=== PATIENT | female | born 1970 | race Caucasian/White ===

== ENCOUNTER → 2017-11-30 10:00 | Outpatient (CLI) | payer BC, SELFPAY | PROVIDERS: Family Provider Family Medicine; PCP Family Medicine; Visit Provider Otolaryngology | DX: Z53.9 Procedure and treatment not carried out, unspecified reason (principal) ==

== ENCOUNTER 2018-08-23 06:41 | Day surgery (SDC) | payer BC, SELFPAY ==
[2018-08-23 07:31] VITALS: BP 114/62; PULSE 73; RESP 18; TEMP 36.6; O2SAT 98; BMI 51.5
--- NOTE | 2018-08-23 08:28 | DCINST_ITS ---
You will use the following diet at home:: No restrictions Discharge Activity: Return to Normal Activity Allergies/Adverse Reactions: Allergies No Known Allergies Allergy (Verified 11/02/17 11:47) Medications to take at Discharge Fluticasone 0.05% [Flonase Nasal [place]] 1 spray NASAL DAILY 12/07/14 Sertraline HCl [Zoloft] 100 mg PO DAILY 12/07/14 Albuterol Inhaler [Ventolin Hfa (SP)] 2 puff INHALATION Q6H PRN PRN 01/16/15 Multivitamins,Therapeutic [Multivitamin] 1 tablet PO DAILY 01/16/15 Montelukast [Singulair] 10 mg PO DAILY 11/02/17 Rabeprazole Sodium [Aciphex] 20 mg PO DAILY 11/02/17 Cetirizine HCl [Zyrtec] 10 mg PO DAILY 08/18/18 Primary Care Physician: Ethan Ba [Primary Care Provider] - Test Results: Test results from this visit will be discussed in further detail at your follow- up appointment, if applicable. Please Follow Up With: Nigel Horn MD When: 3 weeks
--- NOTE | 2018-08-23 08:29 | PCM.OPRPT ---
Problem List (1) Chronic serous otitis media of right ear Status: Chronic (2) Eustachian tube dysfunction Status: Chronic Qualifiers: Laterality: right Qualified Code(s): H69.81 - Other specified disorders of Eustachian tube, right ear Report of Operation Date of Procedure: 08/23/18 Pre-Operative Diagnosis: 1. chronic serous otitis, right ear. 2. eustachain tube dysfunction, right ear Post-Operative Diagnosis: 1. chronic serous otitis, right ear. 2. eustachain tube dysfunction, right ear Surgery/Procedure Performed:: 1. placement pressure equalization tube, right ear. 2. eustachian tube dilation, right ear Type of Anesthesia:: General Description of Procedure: on the day of the procedure, after appropriate informed consent was obtained, the patient was brought to the operating room and placed in supine position on the operating table. he was placed under general endotracheal anesthesia by the anesthesiologist. the tube was secured, the eyes were taped. the left ear was examined by the binocular operating microscope. a speculum was placed. the tympanic membrane was viewed in its entirety and found to be intact. the tympanic membrane was adherent to the promontory. a large mucoid effusion was suctioned and T-tube was placed. the nose was decongested with oxymetazoline soaked pledgets. a zero degree endoscope was inserted into the left nasal cavity and the eustachian tube orifice was visualized. the acclarent AERA system was advanced gently into the eustachian tube with no resistance until a soft stop was felt. it was inflated to 12 david for 2 minutes. the balloon was deflated and retracted. there was no false passage. the patient was awoken from anesthesia and transferred to the PACU in stable condition.
[2018-08-23] MEDS: Ciprofloxacin 0.3% 2.5ml Bottle 1 DRP (09:00)
[2018-08-23] MEDS: Oxymetazoline 0.05% 1 SPRAY SPRAY.BTL 15 SPRAY (09:00)
[2018-08-23 09:09] VITALS: BP 114/62; BP 118/63; PULSE 91; RESP 16; TEMP 37; O2SAT 100
[2018-08-23 09:15] VITALS: BP 107/67; BP 114/62; PULSE 84; RESP 16; O2SAT 100
[2018-08-23 09:30] VITALS: BP 114/62; BP 98/71; PULSE 90; RESP 16; O2SAT 100
[2018-08-23 09:37] VITALS: BP 114/62; BP 91/68; PULSE 79; RESP 16; TEMP 36.7; O2SAT 96
[2018-08-23 10:14] VITALS: BP 114/62; BP 94/68; PULSE 80; RESP 16; TEMP 36.9; O2SAT 98
== END 2018-08-23 10:20 | disposition home or self-care (01) ==
LOC: SDC 06:42 → AC 06:44
PROVIDERS: Family Provider Family Medicine; PCP Family Medicine; Referring Provider Otolaryngology; Visit Provider Otolaryngology
PROC: (CPT 69799; principal; 2018-08-23 08:35)
DX: H65.21 Chronic serous otitis media, right ear (principal); H69.81 Other specified disorders of Eustachian tube, right ear; F32.9 Major depressive disorder, single episode, unspecified; Z79.899 Other long term (current) drug therapy; J45.909 Unspecified asthma, uncomplicated; G47.30 Sleep apnea, unspecified; K21.9 Gastro-esophageal reflux disease without esophagitis; Z87.891 Personal history of nicotine dependence
CPT/HCPCS: 00126; 69436; J7120; J2405

== ENCOUNTER 2020-07-19 05:48 | Day surgery (SDC) | payer BC, MEDICAID, SELFPAY ==
--- NOTE | 2020-07-17 19:59 | PCM.HP.BLA ---
History and Physical History and Physical Patient Name: Miguelina Glasgow : 1970 From: GEMMA BEE NP DATE OF SURGERY: 07/19/2020 SCHEDULED PROCEDURE: Left middle finger trigger release HISTORY OF PRESENT ILLNESS: Preoperative history and physical exam was performed on July 17, 2020. This is a 49-year-old female who has been experiencing left middle finger triggering for several months. The patient rates her pain as 2 on a scale of 10 on average and 8 on a scale of 10 at worst. The patient does wake in the morning with the need to use the right hand to unlock the left middle finger. The pain is made worse with bending the left middle finger. Previous conservative measures consisting of rest and a splint. The patient has a medical history pertinent for asthma, depression, sleep apnea, gastroesophageal reflux disease and history of a DVT. The patient had a DVT in the right lower extremity in January 2019. She denies chest pain, fevers, chills, shortness of breath, difficulty breathing or recent infections. After failing conservative measures and discussing treatment options with Dr. Michael Fregoso the patient does wish to proceed with a left middle finger trigger release. REVIEW OF SYSTEMS: ROS: Const: Reports weight change, but denies change in appetite and fever. CV: Denies chest pain, heart murmur and irregular heartbeat. Resp: Reports shortness of breath and wheezing, but denies cough, pneumonia and tuberculosis. GI: Denies constipation, diarrhea, heartburn, nausea, rectal itching, bloody stools and vomiting. : Reports incontinence. Musculo: Reports leg swelling, pain, trouble walking and weakness. Skin: Reports tattoo, but denies Raynaud's and history of shingles. Neuro: Reports difficulty with balance, dizziness and numbness/tingling but denies ambulatory dysfunction and tremor. Psych: Reports anxiety and stress, but denies insomnia. Jay/Lymph: Reports bleeding/bruising tendency, but denies anemia and past transfusion. Reviewed and updated. PAST MEDICAL HISTORY: Advance Care Plan: Other Directive, POA Other Directive, LIVING WILL PMH: Medical Problems: Arthritis, Asthma, Depression, History Of Phlebitis, Sleep Apnea, Gastroesophageal reflux disease Accidents: LT Ankle Injury, RT Index Finger Injury Surgical Hx: Section Thyroid Nodule Removed - HALF EX Lap Abdomen, Widening of eustachian tube Anesthesia Complications: Nausea, Hard To Wake Up Assistive Devices: Glasses Reviewed and updated. 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 Personal Habits: Cigarette Use: Former.Smokeless Tobacco: Never Used Smokeless Tobacco.E-Cigarette Use: Never used.Alcohol: Occasionally.Drug Use: Denies Use.Enjoy Exercising: Exercises 1-3 x/month. Reviewed and updated. VITALS: Ht: 63 Wt: 293lb 5oz Wt k.047 BMI: 52.0 BP: 140/84 Pulse: 80 Resp: 16 T: 97.9 T: 36.6C ALLERGIES: No Known Drug Allergy MEDICATIONS: Meloxicam 15 mg 1 by mouth every day, Montelukast Sodium 10 mg 1 by mouth every day, Sertraline HCL 100 mg 1po qday, Vitamins daily, Rabeprazole Sodium 20 mg 1po qday PRE-OP EXAM: General appearance:NORMAL Other: Eyes: Conjunctivae and lids: NORMAL Pupils: ERR Ears, Nose, Mouth, and Throat: NORMAL Other: Inspection of lips, teeth and gums: NORMAL Other: Respiratory: Assessment of respiratory effort: NORMAL Other: Auscultation of lungs: clear to auscultation no wheezes, rhonchi or rales. Cardiovascular: Auscultation of heart: regular rate and rhythm, no murmurs, gallops or rubs. Gastrointestinal: Exam of abdomen: soft, nontender, nondistended bowel sounds present. Neurological: see below Psychiatric: Orientation to time, place and person: NORMAL Other: Mood and affect: NORMAL Other: PHYSICAL EXAMINATION: Left hand with tenderness over the A1 gurpreet of the left middle finger. Triggering with flexion and extension of the fingers. Patient is able to make a full composite fist with full extension of all digits. Hose Wrapper strength 5/5. Capillary refill less than 3 seconds. Radial pulse palpable. Sensation intact to light touch. IMAGING STUDIES: 3 views of left hand obtained on May 28, 2020 including AP, lateral and oblique reveal no evidence of fractures or dislocations. No significant osteoarthritis visualized. IMPRESSION: 1. Left middle trigger finger 2. Asthma 3. Depression 4. Sleep apnea 5. Gastroesophageal reflux disease 6. History of a DVT in right lower extremity, January 2019 PLAN: Dr. Michael Fregoso did discuss and review with the patient all treatment options including surgical versus nonsurgical. The patient does wish to proceed with the above-stated procedure. Potential risk, benefits and complications of the procedure were discussed in detail including but not limited to , infection, nerve and blood vessel damage, persistent pain, numbness, tingling, paresthesia, blood clot, pulmonary embolism and requirement for possible further surgery. The patient expressed full understanding and has no further questions for the doctor. The patient does agree to proceed with the above-stated procedure and has signed the surgery consent form. Discussed with the patient the risks associated with the COVID-19 virus including the risk of exposure while at the hospital. The patient was reassured local hospitals have low infection rates and taken all necessary precautions to limit patient exposure to COVID-19. Limiting the patient's time in the hospital may decrease their exposure to COVID-19. The patient was notified that we will need to comply with any screening or testing the hospital wishes to perform and that surgery may be delayed for any positive test results. This dictation was created using voice recognition software. Phonetic and/or grammatical errors may exist. ___ I have re-examined the patient. There are no clinical changes since date of exam. ___ See progress notes for changes. ___ Dictated on admission Date: Time: Signature:
--- NOTE | 2020-07-18 13:58 | EKG12_ITS ---
Test Reason : PRE OP Blood Pressure : / mmHG Vent. Rate : 065 BPM Atrial Rate : 065 BPM P-R Int : 164 ms QRS Dur : 070 ms QT Int : 368 ms P-R-T Axes : 041 013 022 degrees QTc Int : 382 ms Normal sinus rhythm Low voltage QRS Borderline ECG Confirmed by BHAVESH FLORES, JANETT ([id number]), editor managing director CATALINO VALENCIA ([id number]) on 07/22/2020 1:19:56 PM Referred By: Michael Fregoso Confirmed By:BRITTNEY OSPINA MD
[2020-07-18 14:58] LABS: Hematocrit 43.1 % (37-47); Mean Corp Hgb Conc 32.5 g/dL (32-36); Mean Corpuscular Hgb 28.4 pg (27.0-32.0); Mean Corpuscular Volume 87.4 fL (81-99); Mean Platelet Vol. 10.3 fl (6.2-12.0); Platelet Count 304 K/mm3 (150-450); RBC Distribution Width CV 13.8 % (11.6-14.6); Red Blood Count 4.93 M/mm3 (4.2-5.4); White Blood Count 6.8 K/mm3 (4.4-11.0)
[2020-07-18 15:09] LABS: Anion Gap 6 (5-15); BUN 13 mg/dL (7-18); BUN/Creat Ratio 15.8 RATIO (10-20); Calcium,Total 8.9 mg/dL (8.5-10.1); Chloride 109 mmol/L (98-107); Creatinine, Serum 0.82 mg/dL (0.55-1.02); EST Glomerular Filtration Rate 79 mL/min (>60); Est Glom Filt Rate - Afr Amer 95 mL/min (>60); Glucose 98 mg/dL (74-106); Potassium 4.1 mmol/L (3.5-5.1); Sodium Level 141 mmol/L (136-145)
[2020-07-19 06:19] LABS: Internal QC Validated? YES +Cl - CLEAR BKGD; Pregnancy, Urine Negative Negative
[2020-07-19 06:31] VITALS: BP 120/79; PULSE 77; RESP 16; TEMP 521.6; TEMP 971; O2SAT 95; BMI 52.9
[2020-07-19] MEDS: Lactated Ringers 1,000 ML 100 ML IV (07:17)
--- NOTE | 2020-07-19 08:06 | PCM.OPRPT ---
Report of Operation Date of Procedure: 07/19/20 Pre-Operative Diagnosis: A1 stenosing tenosynovitis LMF Post-Operative Diagnosis: same Surgery/Procedure Performed:: Release A1 gurpreet LMF Type of Anesthesia:: Mikala Sevilla Anesthesiologist: Connor Eldridge - Admit VTE Documentation VTE Present on Admission: No VTE Mechan Device Prophylaxis: SCD's VTE Pharm Prophylaxis ordered?: No Reason prophylaxis not ordered:: Procedure Not Indicated
[2020-07-19 08:16] VITALS: BP 120/79; BP 124/79; PULSE 72; RESP 16; TEMP 36; O2SAT 94
[2020-07-19 08:21] VITALS: BP 120/79; BP 125/86; PULSE 76; RESP 16; O2SAT 97
[2020-07-19 08:25] VITALS: BP 117/96; BP 120/79; PULSE 68; RESP 16; O2SAT 97
[2020-07-19 08:31] VITALS: BP 120/70; BP 120/79; PULSE 76; RESP 16; TEMP 36; O2SAT 99
[2020-07-19 09:07] VITALS: BP 120/79; BP 129/76; PULSE 72; RESP 16; TEMP 36.6; O2SAT 99
== END 2020-07-19 09:25 | disposition home or self-care (01) ==
LOC: SDC 05:49 → AC 05:49
PROVIDERS: Anesthesiology; PCP Family Medicine; Referring Provider Orthopaedic Surgery; Visit Provider Orthopaedic Surgery
PROC: (CPT 26055; principal; 2020-07-19 07:20)
DX: M65.332 Trigger finger, left middle finger (principal); M65.842 Other synovitis and tenosynovitis, left hand; Z11.59 Encounter for screening for other viral diseases; F32.9 Major depressive disorder, single episode, unspecified; K21.9 Gastro-esophageal reflux disease without esophagitis; M19.90 Unspecified osteoarthritis, unspecified site; G47.30 Sleep apnea, unspecified; J45.909 Unspecified asthma, uncomplicated; Z87.19 Personal history of other diseases of the digestive system; Z86.718 Personal history of other venous thrombosis and embolism; Z79.01 Long term (current) use of anticoagulants; Z79.899 Other long term (current) drug therapy
CPT/HCPCS: 01810; 26055; 36415; 80048; 81025; 85027; 87635; 93005; C9803; J7120; A4216; J2405; U0003

== ENCOUNTER → 2021-04-30 15:50 | Outpatient (CLI) | payer BC, MEDICAID, SELFPAY ==
[2021-04-30 17:48] LABS: Absolute Lymphocyte Count 2.06 X10^3/uL (0.83-4.51); Absolute Neutrophil Count 5.7 X10^3/uL (2.0-7.7); Basophil# 0.02 X10^3/uL; Basophil% 0.2 % (0-1); Eosinophil# 0.11 X10^3/uL; Eosinophils% 1.3 % (0-5); Hematocrit 42.2 % (37-47); Hemoglobin 13.6 g/dL (12.0-15.0); Lymphocyte # 2.06 X10^3/ul (0.83-4.51); Lymphocyte % 24.2 % (19-41); Mean Corp Hgb Conc 32.2 g/dL (32-36); Mean Corpuscular Hgb 27.4 pg (27.0-32.0); Mean Corpuscular Volume 85.1 fL (81-99); Mean Platelet Vol. 10.4 fl (6.2-12.0); Monocyte# 0.58 X10^3/uL; Monocyte% 6.8 % (0-10); NRBC Flagged by Analyzer 0 % (0-5); Platelet Count 276 K/mm3 (150-450); RBC Distribution Width CV 13.7 % (11.6-14.6); RBC Distribution Width SD 42.1 fl (35.1-43.9); Red Blood Count 4.96 M/mm3 (4.2-5.4); White Blood Count 8.5 K/mm3 (4.4-11.0)
[2021-04-30 18:03] LABS: Vitamin D,25 Hydroxy 36.7 ng/mL
[2021-04-30 18:10] LABS: AST(SGOT) 14 U/L (15-37); Alanine Aminotransfer ALT/SGPT 30 U/L (13-56); Albumin, Serum 3.5 g/dL (3.2-5.0); Alkaline Phosphatase 73 U/L (45-117); Anion Gap 7 (5-15); BUN 26 mg/dL (7-18); BUN/Creat Ratio 28.6 RATIO (10-20); Chloride 108 mmol/L (98-107); Cholesterol 200 mg/dL (200); Creatinine, Serum 0.91 mg/dL (0.55-1.02); EST Glomerular Filtration Rate 70 mL/min (>60); Est Glom Filt Rate - Afr Amer 85 mL/min (>60); Globulin 3.5 g/dL (2.2-4.2); Glucose 125 mg/dL (74-106); High Density Lipoprotein 40 mg/dL; Potassium 3.8 mmol/L (3.5-5.1); Sodium Level 141 mmol/L (136-145); T4 Free Direct 0.75 ng/dL (0.76-1.46); Triglycerides 165 mg/dL; Very Low Density Lipoprotein 33 mg/dL (5-40)
[2021-05-01 18:53] LABS: Hemoglobin A1c 5.3 % (3.8-5.6)
[2021-05-02 09:02] LABS: Thyroid Peroxidase AB < 9 IU/mL (0-34)
[2021-05-03 07:29] LABS: Thyroglobulin Antibody < 1.0 IU/mL (0.0-0.9)
== END ==
PROVIDERS: PCP Family Medicine; Visit Provider Family Medicine
DX: E04.1 Nontoxic single thyroid nodule (principal); E55.9 Vitamin D deficiency, unspecified; E66.01 Morbid (severe) obesity due to excess calories; R73.09 Other abnormal glucose
CPT/HCPCS: 80053; 80061; 82306; 83036; 84439; 84443; 85025; 86376; 86800

== ENCOUNTER → 2021-05-02 15:33 | Outpatient (CLI) | payer BC, MEDICAID, SELFPAY ==
--- NOTE | 2021-05-02 15:36 | US_ITS ---
STUDY: THYROID ULTRASOUND REASON FOR EXAM: Female, 50 years old. NODULE-F/U LT TECHNIQUE: Ultrasound evaluation of the thyroid was performed with real-time and static malcolm-scale imaging. COMPARISON: 10/12/2014 FINDINGS: RIGHT LOBE: Surgically absent LEFT LOBE: The left lobe of the thyroid gland measures 5.6 x 2.2 x 1.9 cm. There is a homogeneous echotexture. Oval-shaped hypoechoic nodule of the superior left thyroid lobe measures 9 x 9 x 16 mm (previously measured 6 x 5 x 7 mm). A 5 x 5 x 4 mm hypoechoic nodule the mid left thyroid lobe is also demonstrated. ISTHMUS: The isthmus measures 3 mm. The regional lymph nodes are normal. US/Thyroid IMPRESSION: 1. Increased size of superior left thyroid lobe nodule currently measuring up to 16 mm. Given interval increased size, FNA sampling versus follow-up in 6-12 months recommended. 2. Right thyroidectomy Electronically Signed: Heladio Arreola MD ([place]) at 15:09 EDT , Service support ,
== END ==
PROVIDERS: PCP Family Medicine; Referring Provider Family Medicine; Visit Provider Family Medicine
DX: E04.1 Nontoxic single thyroid nodule (principal)
CPT/HCPCS: 76536

== ENCOUNTER → 2021-05-10 09:48 | Outpatient (CLI) | payer BC, MEDICAID, SELFPAY ==
[2021-05-10 10:55] LABS: T4 Free Direct 0.81 ng/dL (0.76-1.46); Thyroid Stim Hormone (TSH) 1.98 uIU/mL (0.358-3.74)
== END ==
PROVIDERS: PCP Family Medicine; Referring Provider Otolaryngology; Visit Provider Otolaryngology
DX: E04.1 Nontoxic single thyroid nodule (principal)
CPT/HCPCS: 36415; 84439; 84443

== ENCOUNTER → 2021-06-05 16:58 | Outpatient (CLI) | payer BC, SELFPAY ==
[2021-06-05 16:57] VITALS: BMI 52.9
[2021-06-05 18:20] LABS: Erythrocyte Sedimentation Rate 21 mm/hr (0-30)
[2021-06-06 11:56] LABS: Rheumatoid Factor < 10.0 IU/mL (<15)
== END ==
PROVIDERS: PCP Family Medicine; Visit Provider Family Medicine
DX: M79.7 Fibromyalgia (principal)
CPT/HCPCS: 36415; 85652; 86140; 86431

== ENCOUNTER → 2021-06-24 12:52 | Outpatient (CLI) | payer BC, SELFPAY ==
[2021-06-24 15:41] LABS: Rheumatoid Factor < 10.0 IU/mL (<15)
[2021-06-27 13:51] LABS: ANTINUCLEAR ANTIBODIES DIRECT Negative (Negative)
== END ==
PROVIDERS: PCP Family Medicine; Referring Provider Family Medicine; Visit Provider Family Medicine
DX: R79.82 Elevated C-reactive protein (CRP) (principal)
CPT/HCPCS: 36415; 86038; 86431

== ENCOUNTER 2021-08-22 07:03 | Day surgery (SDC) | payer BC, MEDICAID, SELFPAY ==
[2021-06-02 05:53] VITALS: BMI 52.9
[2021-08-22] VITALS (7 sets, daily range): BP systolic 90–127; BP diastolic 48–75; PULSE 67–87; RESP 16–20; TEMP 36–36.7; O2SAT 96–99; BMI 52.6
[2021-08-22 07:29] LABS: Internal QC Validated? YES +Cl - CLEAR BKGD; Pregnancy, Urine Negative Negative
--- NOTE | 2021-08-22 07:34 | HP.PCM_ITS ---
History and Physical Date of Admission: 08/22/21 Visit Reasons: GERD Chief Complaint: GERD Medical Technician Assistant Required: No Is patient in pain?: No Allergies No Known Allergies Allergy (Verified 06/04/21 14:59) Medications fluticasone propionate 1 spray NASAL DAILY 12/07/14 [History Confirmed 06/04/21] sertraline 100 mg PO DAILY 12/07/14 [History Confirmed 06/04/21] albuterol sulfate [Ventolin Hfa (SP)] 2 puff INHALATION Q6H PRN PRN 01/16/15 [History Confirmed 06/04/21] multivitamin with folic acid [Thera] 1 tab PO DAILY 01/16/15 [History Confirmed 06/04/21] Rabeprazole Sodium [Aciphex] 10 mg PO DAILY 11/02/17 [History Confirmed 06/04/21] montelukast 10 mg PO DAILY 11/02/17 [History Confirmed 06/04/21] Cetirizine Hcl [Zyrtec] 10 mg PO DAILY 08/18/18 [History Confirmed 06/04/21] apixaban 5 mg PO BID 07/04/20 [History Confirmed 06/04/21] albuterol sulfate 5 mg INHALATION PRN ml 06/04/21 [History Confirmed 06/04/21] meloxicam 15 mg tablet 15 mg PO DAILY tab 06/04/21 [History Confirmed 06/04/21] Is last menstrual period known: No Post menopausal: No Patient : No PFSH Medical History (Updated 06/04/21 @ 14:58 by Arabella Ortiz) Asthma History of DVT (deep vein thrombosis) (~2019) History of trigger finger Osteoarthritis Right carpal tunnel syndrome Sleep apnea Surgical History (Updated 06/04/21 @ 14:58 by Arabella Ortiz) History of section History of ear surgery History of lobectomy of thyroid Status post fine needle aspiration Family History (Updated 06/04/21 @ 14:58 by Arabella Ortiz) Father DVT (deep venous thrombosis) Diabetes Heart disease Hypertension CVA (cerebral vascular accident) Mother Diabetes Heart disease Hypertension Asthma Social History Smoking Status: Former smoker HPI HPI HPI: ZOE LIND, is a 50 F who presents to the office today for surgical consultation regarding GERD. The patient is referred by Dr Seth Bowens a written copy of my surgical consult recommendations will return to him. By report the patient said history of symptoms consistent with gastroesophageal reflux disease dating back to the year 1999. Complains of epigastric and retrosternal burning discomfort. Sour brash sensation or croup. She has been on AcipHex for multiple years. She has never had an upper endoscopy. Her current BMI is 53.5 As of May 10, 2021 TSH was 1.98 and free T4 was 0.81 both normal She had a lower extremity DVT March 2019 and she was treated with Eliquis at that time which has been continued. She has never had a colonoscopy. She denies bright red blood per rectum or melena. 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 Lifestyle is sedentary. ROS General General: No weight change, appetite, fatigue, colon cancer, breast cancer or weakness HEENT HEENT: Yes eye surgery; No difficulty swallowing, eye injury, swollen glands or hoarseness Endo Endocrine: No thyroid disease, diabetes mellitus, thyroid cancer, Hair loss, heat intolerance or cold intolerance Musc Musculoskeletal: Yes back problems and arthritis; No rheumatoid arthritis, gout or joint pain Cardio Cardiovascular: No murmur, pacemaker, heart disease, atrial fibrillation, high blood pressure, heart attack, heart stent, palpitations, shortness of breat with exertion or chest pain Psych Psychiatric: Yes depression and anxiety; No hearing voices Resp Respiratory: No shortness of breath, Yes sleep apnea, No cough, No COPD, Yes asthma, No emphysema and No wheezing Gastro Gastrointestinal: No abdominal pain, No nausea or vomiting, No diarrhea, No constipation, No blood in stool, Yes acid reflux, Yes hemorrhoids, No ulcers, No gallbladder problem and No black,tarry stools Jay Hematologic: Yes blood thinners, No blood disorders, No bleeding, No anemia and No blood clots Neuro Neurologic: No weakness Exam Const General: cooperative, comfortable and no acute distress Nutritional Appearance: obese Orientation: alert and awake [facility] Head: normal to inspection Neck Neck: normal visual inspection Chest Other: Kyphosis Resp Effort & Inspection: normal respiratory effort Auscultation: clear to auscultation bilaterally Cardio Rate: regular rate Rhythm: regular rhythm GI Palpation: soft Skin General: no rashes or lesions noted Neuro General: patient alert and patient awake Gait: normal gait Extrem Other: Pitting bilateral extremity edema Psych Thought Process: normal COVID (Procedure Consent) Procedure Criteria Procedure Criteria: Yes Elective The surgeon/proceduralist and patient have discussed in detail the risk of exposure to and/or potential harm posed by the COVID-19 virus with having a surgery/procedure at this time versus the risk of delaying the surgery/procedure. It is not possible to know either the risk of delaying the surgery or procedure or chance of getting an infection with perfect accuracy, but a joint decision was made between the patient and the surgeon/proceduralist to proceed at this time with the scheduled surgery/procedure as indicated on the consent form. Assessment and Plan Assessment and Plan (1) GERD (gastroesophageal reflux disease): Status: Acute Qualifiers: Esophagitis presence: esophagitis presence not specified Qualified Code(s): K21.9 - Gastro-esophageal reflux disease without esophagitis (2) Screening for intestinal cancer: Status: Acute Plan - Dr. Trace Fernández MD: I recommend the patient a esophagogastroduodenoscopy with possible biopsy or polypectomy as indicated. We will have her hold her Eliquis 2 days preprocedure. We will utilize monitored anesthesia care because of her sleep apnea and pulmonary requirements. Her right lower extremity DVT For several years ago. I would deem her medically stable to have her anticoagulation held just for 2 days. I am recommending to her a screening colonoscopy with possible biopsy or polypectomy as indicated. She denies any family history of stomach cancer or colon cancer or colon polyps. She has not had a previous colonoscopy. She is now beyond recommended age for screening She has had an opportunity to ask and have questions answered. We will schedule procedure at her discretion. Copy: Dr Seth Fernández M.D., F.A.C.S. I have re-examined the patient. There are no clinical changes since date of exam.
[2021-08-22] MEDS: Lactated Ringers 1,000 ML 100 ML IV (07:54)
--- NOTE | 2021-08-22 08:15 | IMM_PTH ---
PATIENT: ZOE LIND LOC: EN U#:[id number] AGE/SX: 50/F ROOM: RE08/22/[address]: Dr. Trace Fernández MD : 1970 BED: DIS: 08/22/2021 SPEC #: [id number] RECD: 08/22/21 14:08 STATUS: EUGENE YASMIN #: [id number] AIRAM: 08/22/21 08:[address]: Trace Fernández DEPT: IMMUNOHISTOCHEMISTRY RECD BY: Yael Quan ENTERED: 08/22/21 14:08 SP TYPE: IMMUNO OTHR DR: Dr. Seth Bowens MD Tissues: A - Stomach, NOS Procedures: H Pylori (initial) PHYSICIAN & INSTITUTION [place] [id number] SPECIMEN INFORMATION: Tissue Source: A ? Antrum biopsy Clinical Info: GERD, screening Specimen Number: [id number] CPT code: 53800 METHODOLOGY: Deparaffinized sections of prefer/formalin-fixed tissue or PAP/DQ stained slides are incubated with monoclonal/polyclonal antibodies/oligonucleotide probes. Localization is made via biotin free immunoperoxidase method. Appropriate controls are performed and reacted as expected. Results on target cell population are indicated in the following table: RESULTS: ANTIBODY / CLONE RESULT Block A H Pylori (polyclonal) negative These tests were developed and their performance characteristics determined by [facility]. They may not have been cleared or approved by the U.S. Food and Drug Administration. The FDA has determined that such clearance or approval is not necessary. INTERPRETATION: A. Antrum biopsy: Negative for Helicobacter pylori organisms. SJ:celio 08/26/2021
--- NOTE | 2021-08-22 08:15 | EGD_PTH ---
PATIENT: ZOE LIND LOC: EN U#:[id number] AGE/SX: 50/F ROOM: RE08/22/[address]: Dr. Trace Fernández MD : 1970 BED: DIS: 08/22/2021 SPEC #: [id number] RECD: 08/22/21 10:00 STATUS: EUGENE YASMIN #: [id number] AIRAM: 08/22/21 08:[address]: Trace Fernández DEPT: SURGICAL PATHOLOGY RECD BY: Alma Berry ENTERED: 08/22/21 11:41 SP TYPE: EGD BIOPSY TAMIA DR: Dr. Seth Bowens MD Tissues: A - Gastric mucous membrane B - Esophagus, NOS C - Esophagus, NOS Procedures: Surgery Specimen Level IV HEADER OPERATION: Colonoscopy, EGD ([facility] [place] PRE-OP DIAGNOSIS: GERD, screening TISSUE SUBMITTED: A ? Antrum biopsy for H. pylori, B ? Distal esophagus biopsy, C ? Mid esophagus biopsy MICROSCOPIC DIAGNOSIS A. Antrum, biopsy: Mild gastritis. See microscopic description and comment. B. Distal esophagus, biopsy: Fragments of squamous epithelium with minimal chronic inflammation and congestion. C. Mid esophagus, biopsy: A fragment of squamous epithelium with minimal congestion. SJ:rg 08/25/2021 COMMENT A. The results of immunohistochemistry for Helicobacter pylori will be reported separately ([id number]). MICROSCOPIC DESCRIPTION Slides are reviewed. A. The specimen shows fragments of gastric mucosa with chronic inflammatory cell infiltrates in the lamina propria consisting of lymphocytes and plasma cells, consistent with mild chronic gastritis. GROSS DESCRIPTION A - Received in fixative is one container labeled with the patient's name and designated antrum biopsy. The specimen consists of multiple irregular fragments of light hamilton soft tissue that in aggregate measure 0.3 x 0.2 x 0.1 cm. The specimen is totally submitted in one cassette. B - Received in fixative is one container labeled with the patient's name and designated distal esophagus biopsy. The specimen consists of multiple irregular fragments of light hamilton soft tissue that in aggregate measure 0.6 x 0.2 x 0.1 cm. The specimen is totally submitted in one cassette. C - Received in fixative is one container labeled with the patient's name and designated biopsy mid esophagus. The specimen consists of one irregular fragment of light hamilton soft tissue that measures 0.6 x 0.2 x 0.1 cm. The specimen is totally submitted in one cassette. / SJ:rg 08/22/21 TC:3 CPT: 74197 x3
--- NOTE | 2021-08-22 09:04 | OP.EGD_ITS ---
Patient Name: Miguelina Glasgow Procedure Date: 08/22/2021 8:29 AM Date of : 1970 Age: 50 Procedure: Upper GI endoscopy Indications: Heartburn Providers: Trace Fernández MD Medicines: See the Anesthesia note for documentation of the administered medications Complications: No immediate complications. Procedure: Pre-Anesthesia Assessment: - Prior to the procedure, a History and Physical was performed, and patient medications and allergies were reviewed. The patient's tolerance of previous anesthesia was also reviewed. The risks and benefits of the procedure and the sedation options and risks were discussed with the patient. All questions were answered, and informed consent was obtained. Prior Anticoagulants: The patient has taken Eliquis (apixaban), last dose was 1 day prior to procedure. ASA Grade Assessment: III - A patient with severe systemic disease. After reviewing the risks and benefits, the patient was deemed in satisfactory condition to undergo the procedure. After obtaining informed consent, the endoscope was passed under direct vision. Throughout the procedure, the patient's blood pressure, pulse, and oxygen saturations were monitored continuously. The Endoscope was introduced through the mouth, and advanced to the second part of duodenum. The upper GI endoscopy was accomplished without difficulty. The patient tolerated the procedure well. Scope In: 8:38:18 AM Scope Out: 8:44:47 AM Total Procedure Duration Time 0 hours 6 minutes 29 seconds Findings: The Z-line was variable and was found 37 cm from the incisors. Diffuse mild mucosal variance characterized by scalloping was found in the middle third of the esophagus. Biopsies were taken with a cold forceps for histology. LA Grade A (one or more mucosal breaks less than 5 mm, not extending between tops of 2 mucosal folds) esophagitis with no bleeding was found 37 cm from the incisors. Biopsies were taken with a cold forceps for histology. The entire examined stomach was normal. Biopsies were taken with a cold forceps for histology. The examined duodenum was normal. Impression: - Z-line variable, 37 cm from the incisors. - Esophageal mucosal variant. Biopsied. - LA Grade A reflux esophagitis. Biopsied. - Normal stomach. Biopsied antrum - Normal examined duodenum. Recommendation: - Await pathology results. - Discharge patient to home. - Resume previous diet. - Continue present medications. - Telephone my office for pathology results in 1 week. Procedure Code(s): --- Professional --- 43189, Esophagogastroduodenoscopy, flexible, transoral; with biopsy, single or multiple Diagnosis Code(s): --- Professional --- K22.8, Other specified diseases of esophagus K21.0, Gastro-esophageal reflux disease with esophagitis R12, Heartburn CPT copyright 2017 [employer]. All rights reserved. The codes documented in this report are preliminary and upon pantograph i engraver review may be revised to meet current compliance requirements. Trace Fernández MD 08/22/2021 9:04:05 AM This report has been signed electronically. Number of Addenda: 0 Note Initiated On: 08/22/2021 8:29 AM
--- NOTE | 2021-08-22 09:05 | OP.CCLET_ITS ---
08/22/2021 Seth Bowens [address] [place] [address] Re : Upper GI endoscopy procedure for Miguelina Glasgow Dear Dr. Bowens This procedure was performed on Sunday, August 22, 2021. My impressions and recommendations are as follows: Impressions : - Z-line variable, 37 cm from the incisors. - Esophageal mucosal variant. Biopsied. - LA Grade A reflux esophagitis. Biopsied. - Normal stomach. Biopsied antrum - Normal examined duodenum. Recommendations : - Await pathology results. - Discharge patient to home. - Resume previous diet. - Continue present medications. - Telephone my office for pathology results in 1 week. My findings are described in the full procedure note, which is enclosed. If I can be of further assistance, please feel free to contact me at Doctor phone number(s): Work: . Sincerely, Trace Fernández MD 08/22/2021 9:04:05 AM This report has been signed electronically.
--- NOTE | 2021-08-22 09:08 | OP.COLON_ITS ---
Patient Name: Miguelina Glasgow Procedure Date: 08/22/2021 8:45 AM Date of : 1970 Age: 50 Procedure: Colonoscopy Indications: Screening for colorectal malignant neoplasm Providers: Trace Fernández MD Medicines: See the Anesthesia note for documentation of the administered medications Patient Profile: Last Colonoscopy: none. The patient's first colonoscopy is today. Complications: No immediate complications. Procedure: Pre-Anesthesia Assessment: - Prior to the procedure, a History and Physical was performed, and patient medications and allergies were reviewed. The patient's tolerance of previous anesthesia was also reviewed. The risks and benefits of the procedure and the sedation options and risks were discussed with the patient. All questions were answered, and informed consent was obtained. Prior Anticoagulants: The patient has taken Eliquis (apixaban), last dose was 1 day prior to procedure. ASA Grade Assessment: III - A patient with severe systemic disease. After reviewing the risks and benefits, the patient was deemed in satisfactory condition to undergo the procedure. After I obtained informed consent, the scope was passed under direct vision. Throughout the procedure, the patient's blood pressure, pulse, and oxygen saturations were monitored continuously. The adult colonoscope was introduced through the anus and advanced to the cecum, identified by appendiceal orifice and ileocecal valve. The colonoscopy was performed without difficulty. The patient tolerated the procedure well. The quality of the bowel preparation was good. Scope In: 8:48:12 AM Scope Withdrawal Time 0 hours 6 minutes 35 seconds Scope Out: 8:57:34 AM Total Procedure Duration Time 0 hours 9 minutes 22 seconds Findings: The perianal and digital rectal examinations were normal. The digital rectal exam findings include non-thrombosed external hemorrhoids, non-thrombosed internal hemorrhoids and internal hemorrhoids that prolapse with straining, but spontaneously regress to the resting position (Grade II). The colon (entire examined portion) appeared normal. Impression: - Non-thrombosed external hemorrhoids, non-thrombosed internal hemorrhoids and internal hemorrhoids that prolapse with straining, but spontaneously regress to the resting position (Grade II) found on digital rectal exam. - The entire examined colon is normal. - No specimens collected. Recommendation: - Discharge patient to home. - Resume previous diet. - Continue present medications. - Repeat colonoscopy in 10 years for screening purposes. Procedure Code(s): --- Professional --- 33481, Colonoscopy, flexible; diagnostic, including collection of specimen(s) by brushing or washing, when performed (separate procedure) Diagnosis Code(s): --- Professional --- Z12.11, Encounter for screening for malignant neoplasm of colon K64.1, Second degree hemorrhoids K64.4, Residual hemorrhoidal skin tags CPT copyright 2017 [employer]. All rights reserved. The codes documented in this report are preliminary and upon motor vehicle compliance analyst review may be revised to meet current compliance requirements. Trace Fernández MD 08/22/2021 9:08:06 AM This report has been signed electronically. Number of Addenda: 0 Note Initiated On: 08/22/2021 8:45 AM
--- NOTE | 2021-08-22 09:09 | OP.CCLET_ITS ---
08/22/2021 Seth Bowens [address] [place] [address] Re : Colonoscopy procedure for Miguelina Glasgow Dear Dr. Bowens This procedure was performed on Sunday, August 22, 2021. My impressions and recommendations are as follows: Impressions : - Non-thrombosed external hemorrhoids, non-thrombosed internal hemorrhoids and internal hemorrhoids that prolapse with straining, but spontaneously regress to the resting position (Grade II) found on digital rectal exam. - The entire examined colon is normal. - No specimens collected. Recommendations : - Discharge patient to home. - Resume previous diet. - Continue present medications. - Repeat colonoscopy in 10 years for screening purposes. My findings are described in the full procedure note, which is enclosed. If I can be of further assistance, please feel free to contact me at Doctor phone number(s): Work: . Sincerely, Trace Fernández MD 08/22/2021 9:08:06 AM This report has been signed electronically.
== END 2021-08-22 09:54 ==
LOC: EN 07:04 → AC 07:05
PROVIDERS: Anesthesiology; PCP Family Medicine; Referring Provider Family Medicine; Visit Provider Surgery
PROC: 0DJD8ZZ Inspection of Lower Intestinal Tract, Via Natural or Artificial Opening Endoscopic (ICD-10-PCS; CPT 45378; principal; 2021-08-22 08:10)
DX: Z12.11 Encounter for screening for malignant neoplasm of colon (principal); K29.70 Gastritis, unspecified, without bleeding; K21.00 Gastro-esophageal reflux disease with esophagitis, without bleeding; K64.1 Second degree hemorrhoids; K64.4 Residual hemorrhoidal skin tags; F32.A Depression, unspecified; G47.30 Sleep apnea, unspecified; M19.90 Unspecified osteoarthritis, unspecified site; G56.01 Carpal tunnel syndrome, right upper limb; J45.909 Unspecified asthma, uncomplicated; Z86.718 Personal history of other venous thrombosis and embolism; Z79.899 Other long term (current) drug therapy
CPT/HCPCS: 43239; 45378; 81025; 88305; 88342; J7120; J2405

== ENCOUNTER → 2021-09-10 16:26 | Outpatient (CLI) | payer BC, MEDICAID, SELFPAY ==
[2021-09-10 17:59] LABS: Absolute Lymphocyte Count 2.16 X10^3/uL (0.83-4.51); Basophil# 0.03 X10^3/uL; Basophil% 0.4 % (0-1); Eosinophil# 0.12 X10^3/uL; Eosinophils% 1.5 % (0-5); Hematocrit 41.2 % (37-47); Hemoglobin 13.2 g/dL (12.0-15.0); Lymphocyte # 2.16 X10^3/ul (0.83-4.51); Lymphocyte % 27.6 % (19-41); Mean Corpuscular Hgb 27.4 pg (27.0-32.0); Mean Corpuscular Volume 85.7 fL (81-99); Mean Platelet Vol. 10.7 fl (6.2-12.0); Monocyte% 6.4 % (0-10); NRBC Flagged by Analyzer 0 % (0-5); Neutrophil # 4.98 X10^3/uL (2.7-7.7); Neutrophil % 63.7 % (47-70); Platelet Count 265 K/mm3 (150-450); RBC Distribution Width CV 13.5 % (11.6-14.6); RBC Distribution Width SD 42.1 fl (35.1-43.9); Red Blood Count 4.81 M/mm3 (4.2-5.4); White Blood Count 7.8 K/mm3 (4.4-11.0)
[2021-09-10 18:13] LABS: ALB/GLOB Ratio 0.9 RATIO (0.9-2.4); AST(SGOT) 14 U/L (15-37); Alanine Aminotransfer ALT/SGPT 29 U/L (13-56); Albumin, Serum 3.3 g/dL (3.2-5.0); Alkaline Phosphatase 77 U/L (45-117); Anion Gap 5 (5-15); BUN 24 mg/dL (7-18); BUN/Creat Ratio 31.1 RATIO (10-20); Calcium,Total 8.7 mg/dL (8.5-10.1); Chloride 109 mmol/L (98-107); Cholesterol 194 mg/dL (200); Creatinine, Serum 0.77 mg/dL (0.55-1.02); EST Glomerular Filtration Rate 84 mL/min (>60); Est Glom Filt Rate - Afr Amer 102 mL/min (>60); Globulin 3.6 g/dL (2.2-4.2); Glucose 90 mg/dL (74-106); High Density Lipoprotein 36 mg/dL; Potassium 4.1 mmol/L (3.5-5.1); Protein, Total 6.9 g/dL (6.4-8.2); Sodium Level 141 mmol/L (136-145); Triglycerides 164 mg/dL; Very Low Density Lipoprotein 33 mg/dL (5-40)
[2021-09-10 18:16] LABS: Hemoglobin A1c 5.4 % (3.8-5.6)
== END ==
PROVIDERS: PCP Family Medicine; Referring Provider Family Medicine; Visit Provider Family Medicine
DX: R73.09 Other abnormal glucose (principal); E66.01 Morbid (severe) obesity due to excess calories; E55.9 Vitamin D deficiency, unspecified
CPT/HCPCS: 36415; 80053; 80061; 81241; 82306; 83036; 85025

== ENCOUNTER 2021-11-13 16:04 | Outpatient (CLI) | payer BC, SELFPAY ==
[2021-11-19 10:43] LABS: HPV Reflexed? NOT INDICATED
== END 2021-11-13 23:59 | disposition short-term general hospital (02) ==
LOC: LABSPEC 16:05
PROVIDERS: PCP Family Medicine; Visit Provider Obstetrics & Gynecology
DX: Z12.4 Encounter for screening for malignant neoplasm of cervix (principal)
CPT/HCPCS: 88175; G0145

== ENCOUNTER 2021-11-25 15:00 | Outpatient (CLI) | payer BC, SELFPAY ==
[2021-11-25 17:52] LABS: Follicle Stimulating Hormone 9.8 mIU/mL
== END 2021-11-25 23:59 | disposition short-term general hospital (02) ==
LOC: MFPLAB 15:04
PROVIDERS: PCP Family Medicine; Referring Provider Family Medicine; Visit Provider Family Medicine
DX: N92.6 Irregular menstruation, unspecified (principal)
CPT/HCPCS: 36415; 83001; 83002

== ENCOUNTER 2022-01-21 15:34 | Outpatient (CLI) | payer BC, MEDICAID, SELFPAY ==
[2022-01-21 17:52] LABS: Absolute Lymphocyte Count 2.39 X10^3/uL (0.83-4.51); Absolute Neutrophil Count 5.6 X10^3/uL (2.0-7.7); Basophil# 0.03 X10^3/uL; Basophil% 0.3 % (0-1); Eosinophil# 0.13 X10^3/uL; Eosinophils% 1.5 % (0-5); Hematocrit 42.7 % (37-47); Hemoglobin 13.5 g/dL (12.0-15.0); Lymphocyte # 2.39 X10^3/ul (0.83-4.51); Lymphocyte % 27.2 % (19-41); Mean Corp Hgb Conc 31.6 g/dL (32-36); Mean Corpuscular Hgb 27.4 pg (27.0-32.0); Mean Corpuscular Volume 86.8 fL (81-99); Mean Platelet Vol. 10.7 fl (6.2-12.0); Monocyte# 0.57 X10^3/uL; Monocyte% 6.5 % (0-10); NRBC Flagged by Analyzer 0 % (0-5); Neutrophil # 5.64 X10^3/uL (2.7-7.7); Platelet Count 272 K/mm3 (150-450); RBC Distribution Width CV 13.9 % (11.6-14.6); RBC Distribution Width SD 43.8 fl (35.1-43.9); Red Blood Count 4.92 M/mm3 (4.2-5.4); White Blood Count 8.8 K/mm3 (4.4-11.0)
[2022-01-21 18:19] LABS: Vitamin D,25 Hydroxy 37.3 ng/mL
[2022-01-21 18:21] LABS: ALB/GLOB Ratio 1.1 RATIO (0.9-2.4); AST(SGOT) 16 U/L (15-37); Alanine Aminotransfer ALT/SGPT 35 U/L (13-56); Albumin, Serum 3.5 g/dL (3.2-5.0); Alkaline Phosphatase 79 U/L (45-117); Anion Gap 9 (5-15); BUN 20 mg/dL (7-18); BUN/Creat Ratio 26.1 RATIO (10-20); Calcium,Total 8.9 mg/dL (8.5-10.1); Chloride 105 mmol/L (98-107); Creatinine, Serum 0.76 mg/dL (0.55-1.02); EST Glomerular Filtration Rate 85 mL/min (>60); Est Glom Filt Rate - Afr Amer 103 mL/min (>60); Globulin 3.2 g/dL (2.2-4.2); Glucose 93 mg/dL (74-106); Potassium 4.4 mmol/L (3.5-5.1); Protein, Total 6.7 g/dL (6.4-8.2); Sodium Level 138 mmol/L (136-145)
[2022-01-21 18:36] LABS: Amphetamine Urine VISTA NEGATIVE (<1000 ng/mL); Barbiturate Urine VISTA NEGATIVE (< 200 ng/mL); Benzodiazepine Urine VISTA NEGATIVE (< 200 ng/mL); Cocaine Urine VISTA NEGATIVE (< 300 ng/mL); Ecstacy Urine VISTA NEGATIVE (< 500 ng/mL); Methadone Urine VISTA NEGATIVE (< 300 ng/mL); PCP Urine VISTA NEGATIVE (< 25 ng/mL); THC Urine VISTA NEGATIVE (< 50 ng/mL); Vista UDS pH Range 6
== END 2022-01-21 23:59 | disposition home or self-care (01) ==
LOC: MFPLAB 15:35
PROVIDERS: PCP Family Medicine; Referring Provider Family Medicine; Visit Provider Family Medicine
DX: E66.01 Morbid (severe) obesity due to excess calories (principal); E55.9 Vitamin D deficiency, unspecified; R63.2 Polyphagia
CPT/HCPCS: 36415; 80053; 80307; 82306; 85025

== ENCOUNTER → 2022-03-23 | Outpatient (CLI) | payer BC, SELFPAY ==
--- NOTE | 2022-03-23 17:11 | RAD_ITS ---
INDICATION: THUMB PAIN -- ATTN TO THUMB EXAMINATION/TECHNIQUE: X-RAY - LEFT XR Hand Min 3 Views 3 VIEWS COMPARISON: None. FINDINGS/ RAD/Hand Min 3 Views IMPRESSION: Mild osteoarthritis at the first carpometacarpal joint. There is some mild incongruity at the first carpometacarpal joint with minimal lateral subluxation of the first metacarpal bone in relation to the trapezium. No acute fracture or subluxation. The remainder the bones are intact. Soft tissues are unremarkable. No radiopaque foreign bodies. Electronically Signed: José Luis Ba, at 10:39 EDT ,
== END | disposition home or self-care (01) ==
LOC: MTRAD 17:10
PROVIDERS: PCP Family Medicine; Referring Provider Family Medicine; Visit Provider Family Medicine
DX: M79.645 Pain in left finger(s) (principal)
CPT/HCPCS: 73130

== ENCOUNTER → 2022-05-14 | Outpatient (CLI) | payer BC, SELFPAY ==
--- NOTE | 2022-05-14 16:32 | RAD_ITS ---
STUDY: X-RAY CHEST REASON FOR EXAM: Female, 51 years old. Cough TECHNIQUE: PA and lateral. COMPARISON: None. FINDINGS: LUNGS: No consolidation. No pneumothorax. MEDIASTINUM: Unremarkable. CARDIAC SILHOUETTE: Not enlarged. BONES AND SOFT TISSUES: Degenerative changes in the dorsal spine. RAD/Chest PA and Lateral IMPRESSION: No evidence of active intrathoracic disease. Electronically Signed: Veronica Harden MD at 6:42 EDT ,
== END | disposition home or self-care (01) ==
LOC: MTRAD 16:32
PROVIDERS: PCP Family Medicine; Referring Provider Family Medicine; Visit Provider Family Medicine
DX: R05.9 Cough, unspecified (principal)
CPT/HCPCS: 71046

== ENCOUNTER → 2022-07-01 | Outpatient (CLI) | payer BC, MEDICAID, SELFPAY ==
[2022-07-01 18:02] LABS: Absolute Lymphocyte Count 2.01 X10^3/uL (0.83-4.51); Absolute Neutrophil Count 4.2 X10^3/uL (2.0-7.7); Basophil# 0.02 X10^3/uL; Basophil% 0.3 % (0-1); Eosinophil# 0.13 X10^3/uL; Eosinophils% 1.9 % (0-5); Hematocrit 41.7 % (37-47); Hemoglobin 13.5 g/dL (12.0-15.0); Lymphocyte # 2.01 X10^3/ul (0.83-4.51); Lymphocyte % 29.6 % (19-41); Mean Corp Hgb Conc 32.4 g/dL (32-36); Mean Corpuscular Hgb 28.1 pg (27.0-32.0); Mean Corpuscular Volume 86.7 fL (81-99); Mean Platelet Vol. 10.6 fl (6.2-12.0); Monocyte% 5.9 % (0-10); NRBC Flagged by Analyzer 0 % (0-5); Neutrophil # 4.19 X10^3/uL (2.7-7.7); Neutrophil % 61.9 % (47-70); Platelet Count 258 K/mm3 (150-450); RBC Distribution Width CV 13.9 % (11.6-14.6); RBC Distribution Width SD 44.3 fl (35.1-43.9); Red Blood Count 4.81 M/mm3 (4.2-5.4); White Blood Count 6.8 K/mm3 (4.4-11.0)
[2022-07-01 18:18] LABS: ALB/GLOB Ratio 0.9 RATIO (0.9-2.4); AST(SGOT) 18 U/L (15-37); Alanine Aminotransfer ALT/SGPT 31 U/L (13-56); Albumin, Serum 3.2 g/dL (3.2-5.0); Alkaline Phosphatase 74 U/L (45-117); Anion Gap 8 (5-15); BUN 16 mg/dL (7-18); BUN/Creat Ratio 18.6 RATIO (10-20); Calcium,Total 8.4 mg/dL (8.5-10.1); Chloride 106 mmol/L (98-107); Cholesterol 187 mg/dL (200); Creatinine, Serum 0.86 mg/dL (0.55-1.02); EST Glomerular Filtration Rate 74 mL/min (>60); Est Glom Filt Rate - Afr Amer 90 mL/min (>60); Globulin 3.7 g/dL (2.2-4.2); Glucose 102 mg/dL (74-106); High Density Lipoprotein 42 mg/dL; Protein, Total 6.9 g/dL (6.4-8.2); Sodium Level 139 mmol/L (136-145); Triglycerides 135 mg/dL; Very Low Density Lipoprotein 27 mg/dL (5-40)
[2022-07-01 18:21] LABS: Vitamin D,25 Hydroxy 56.2 ng/mL
[2022-07-02 11:31] LABS: Hemoglobin A1c 5.5 % (3.8-5.6)
== END | disposition home or self-care (01) ==
LOC: MFPLAB 15:43
PROVIDERS: PCP Family Medicine; Visit Provider Family Medicine
DX: R73.09 Other abnormal glucose (principal); E66.01 Morbid (severe) obesity due to excess calories; E55.9 Vitamin D deficiency, unspecified
CPT/HCPCS: 36415; 80053; 80061; 82306; 83036; 85025

== ENCOUNTER 2022-07-08 20:24 | Emergency (ER) | payer BC, SELFPAY ==
[2022-07-08 20:25] VITALS: BP 159/101; PULSE 95; RESP 18; TEMP 36.4; O2SAT 98; BMI 49.4
--- NOTE | 2022-07-08 21:31 | ED.RN ---
PT WAS AND TIRED OF WAITING,EMPATHY [email or web address].LWBS.
== END 2022-07-08 21:25 | disposition left against medical advice (07) ==
LOC: ED 21:37
PROVIDERS: PCP Family Medicine
DX: Z53.21 Procedure and treatment not carried out due to patient leaving prior to being seen by health care provider (principal)

== ENCOUNTER → 2022-07-09 | Outpatient (CLI) | payer BC, SELFPAY ==
--- NOTE | 2022-07-09 18:30 | US_ITS ---
EXAM: US SOFT TISSUES HEAD AND NECK, THYROID CLINICAL INDICATION: THYROID NODULE TECHNIQUE: Greyscale and color doppler imaging was performed of the thyroid gland. This report was created using [facility] report generation technology. COMPARISON: May 02, 2021 thyroid ultrasound FINDINGS: Surgical absence of the right thyroid lobe with no gross abnormalities in the right thyroid fossa. Left lower lobe measures 5.9 x 1.9 x 2.0 cm and is heterogeneous in appearance. There are 3 left thyroid nodules. 2 nodules identified at the upper pole. The larger of these 2 nodules measures up to 1.2 cm (right either margins and intranodular blood flow). The other upper pole nodule is subcentimeter in size. The third nodule is located at the interpolar aspect of the left lobe, measuring up to 6 mm with associated calcifications. Thyroid isthmus measures 2.5 mm with no discrete nodules. No adenopathy. US/Thyroid IMPRESSION: 1. No interval increase in size of the largest left thyroid nodule which measures up to 1.3 cm on today''s exam. 2. Two other subcentimeter left thyroid nodules are identified and can be followed. Electronically Signed: John Nash MD at 4:26 EDT ,
== END | disposition home or self-care (01) ==
LOC: US 18:31
PROVIDERS: PCP Family Medicine; Visit Provider Family Medicine
DX: E04.1 Nontoxic single thyroid nodule (principal)
CPT/HCPCS: 76536

== ENCOUNTER 2022-10-01 16:11 | Outpatient (CLI) | payer BC, MEDICAID, SELFPAY ==
[2022-10-01 17:57] LABS: Absolute Lymphocyte Count 2.46 X10^3/uL (0.83-4.51); Absolute Neutrophil Count 4.9 X10^3/uL (2.0-7.7); Basophil# 0.03 X10^3/uL; Basophil% 0.4 % (0-1); Eosinophil# 0.16 X10^3/uL; Hematocrit 42.7 % (37-47); Hemoglobin 13.4 g/dL (12.0-15.0); Lymphocyte # 2.46 X10^3/ul (0.83-4.51); Lymphocyte % 30.5 % (19-41); Mean Corp Hgb Conc 31.4 g/dL (32-36); Mean Corpuscular Hgb 27.5 pg (27.0-32.0); Mean Corpuscular Volume 87.5 fL (81-99); Mean Platelet Vol. 10.5 fl (6.2-12.0); Monocyte# 0.49 X10^3/uL; Monocyte% 6.1 % (0-10); NRBC Flagged by Analyzer 0 % (0-5); Neutrophil # 4.89 X10^3/uL (2.7-7.7); Neutrophil % 60.5 % (47-70); Platelet Count 278 K/mm3 (150-450); RBC Distribution Width CV 13.5 % (11.6-14.6); RBC Distribution Width SD 43.1 fl (35.1-43.9); Red Blood Count 4.88 M/mm3 (4.2-5.4); White Blood Count 8.1 K/mm3 (4.4-11.0)
[2022-10-01 18:31] LABS: AST(SGOT) 14 U/L (15-37); Alanine Aminotransfer ALT/SGPT 37 U/L (13-56); Albumin, Serum 3.3 g/dL (3.2-5.0); Alkaline Phosphatase 80 U/L (45-117); Anion Gap 9 (5-15); BUN 16 mg/dL (7-18); BUN/Creat Ratio 16.4 RATIO (10-20); Calcium,Total 8.5 mg/dL (8.5-10.1); Chloride 106 mmol/L (98-107); Cholesterol 215 mg/dL (200); Creatinine, Serum 0.97 mg/dL (0.55-1.02); EST Glomerular Filtration Rate 64 mL/min (>60); Est Glom Filt Rate - Afr Amer 78 mL/min (>60); Globulin 3.2 g/dL (2.2-4.2); Glucose 92 mg/dL (74-106); High Density Lipoprotein 39 mg/dL; Potassium 4.3 mmol/L (3.5-5.1); Protein, Total 6.5 g/dL (6.4-8.2); Sodium Level 141 mmol/L (136-145); Triglycerides 267 mg/dL; Very Low Density Lipoprotein 53 mg/dL (5-40)
[2022-10-01 19:01] LABS: Vitamin D,25 Hydroxy 39.9 ng/mL
== END 2022-10-01 23:59 | disposition home or self-care (01) ==
LOC: MFPLAB 16:16
PROVIDERS: PCP Family Medicine; Referring Provider Family Medicine; Visit Provider Family Medicine
DX: E66.01 Morbid (severe) obesity due to excess calories (principal); E55.9 Vitamin D deficiency, unspecified
CPT/HCPCS: 36415; 80053; 80061; 82306; 85025

== ENCOUNTER → 2022-12-18 | Outpatient (CLI) | payer BC, MEDICAID, SELFPAY ==
[2022-12-18 18:09] LABS: Absolute Lymphocyte Count 2.15 X10^3/uL (0.83-4.51); Absolute Neutrophil Count 4.6 X10^3/uL (2.0-7.7); Basophil# 0.03 X10^3/uL; Basophil% 0.4 % (0-1); Eosinophil# 0.14 X10^3/uL; Eosinophils% 1.9 % (0-5); Hematocrit 42.2 % (37-47); Hemoglobin 13.6 g/dL (12.0-15.0); Lymphocyte # 2.15 X10^3/ul (0.83-4.51); Mean Corp Hgb Conc 32.2 g/dL (32-36); Mean Corpuscular Hgb 27.8 pg (27.0-32.0); Mean Corpuscular Volume 86.1 fL (81-99); Mean Platelet Vol. 10.1 fl (6.2-12.0); Monocyte# 0.44 X10^3/uL; Monocyte% 5.9 % (0-10); NRBC Flagged by Analyzer 0 % (0-5); Neutrophil # 4.61 X10^3/uL (2.7-7.7); Neutrophil % 62.3 % (47-70); Platelet Count 257 K/mm3 (150-450); RBC Distribution Width CV 13.6 % (11.6-14.6); RBC Distribution Width SD 42.2 fl (35.1-43.9); White Blood Count 7.4 K/mm3 (4.4-11.0)
[2022-12-18 18:40] LABS: Vitamin D,25 Hydroxy 61.2 ng/mL
[2022-12-18 18:53] LABS: AST(SGOT) 14 U/L (15-37); Alanine Aminotransfer ALT/SGPT 24 U/L (13-56); Albumin, Serum 3.3 g/dL (3.2-5.0); Alkaline Phosphatase 79 U/L (45-117); Anion Gap 8 (5-15); BUN 18 mg/dL (7-18); BUN/Creat Ratio 16.7 RATIO (10-20); Calcium,Total 8.8 mg/dL (8.5-10.1); Chloride 105 mmol/L (98-107); Cholesterol 196 mg/dL (200); Creatinine, Serum 1.08 mg/dL (0.55-1.02); EST Glomerular Filtration Rate 57 mL/min (>60); Est Glom Filt Rate - Afr Amer 69 mL/min (>60); Globulin 3.2 g/dL (2.2-4.2); Glucose 101 mg/dL (74-106); High Density Lipoprotein 39 mg/dL; Potassium 4.1 mmol/L (3.5-5.1); Protein, Total 6.5 g/dL (6.4-8.2); Sodium Level 140 mmol/L (136-145); Thyroid Stim Hormone (TSH) 1.81 uIU/mL (0.358-3.74); Triglycerides 197 mg/dL; Very Low Density Lipoprotein 39 mg/dL (5-40)
== END | disposition home or self-care (01) ==
LOC: MFPLAB 15:58
PROVIDERS: PCP Family Medicine; Referring Provider Family Medicine; Visit Provider Family Medicine
DX: K21.9 Gastro-esophageal reflux disease without esophagitis (principal); E66.01 Morbid (severe) obesity due to excess calories; E55.9 Vitamin D deficiency, unspecified
CPT/HCPCS: 36415; 80053; 80061; 82306; 84443; 85025

== ENCOUNTER → 2023-03-19 | Outpatient (CLI) | payer BC, MEDICAID, SELFPAY ==
[2023-03-19 18:01] LABS: Absolute Neutrophil Count 3.6 X10^3/uL (2.0-7.7); Basophil# 0.03 X10^3/uL; Basophil% 0.5 % (0-1); Eosinophil# 0.09 X10^3/uL; Eosinophils% 1.5 % (0-5); Hematocrit 43.2 % (37-47); Hemoglobin 14.3 g/dL (12.0-15.0); Lymphocyte % 32.6 % (19-41); Mean Corp Hgb Conc 33.1 g/dL (32-36); Mean Corpuscular Hgb 27.7 pg (27.0-32.0); Mean Corpuscular Volume 83.7 fL (81-99); Mean Platelet Vol. 10.3 fl (6.2-12.0); Monocyte# 0.38 X10^3/uL; Monocyte% 6.2 % (0-10); NRBC Flagged by Analyzer 0 % (0-5); Neutrophil # 3.63 X10^3/uL (2.7-7.7); Platelet Count 282 K/mm3 (150-450); RBC Distribution Width CV 13.5 % (11.6-14.6); RBC Distribution Width SD 41.5 fl (35.1-43.9); Red Blood Count 5.16 M/mm3 (4.2-5.4); White Blood Count 6.1 K/mm3 (4.4-11.0)
[2023-03-19 18:32] LABS: ALB/GLOB Ratio 1.1 RATIO (0.9-2.4); AST(SGOT) 28 U/L (15-37); Alanine Aminotransfer ALT/SGPT 50 U/L (13-56); Albumin, Serum 3.6 g/dL (3.2-5.0); Alkaline Phosphatase 71 U/L (45-117); Anion Gap 5 (5-15); BUN 14 mg/dL (7-18); BUN/Creat Ratio 16.6 RATIO (10-20); Calcium,Total 8.9 mg/dL (8.5-10.1); Chloride 109 mmol/L (98-107); Cholesterol 192 mg/dL (200); Creatinine, Serum 0.84 mg/dL (0.55-1.02); EST Glomerular Filtration Rate 76 mL/min (>60); Est Glom Filt Rate - Afr Amer 92 mL/min (>60); Globulin 3.4 g/dL (2.2-4.2); Glucose 91 mg/dL (74-106); High Density Lipoprotein 36 mg/dL; Potassium 3.9 mmol/L (3.5-5.1); Sodium Level 142 mmol/L (136-145); Triglycerides 215 mg/dL; Very Low Density Lipoprotein 43 mg/dL (5-40)
[2023-03-19 18:38] LABS: Vitamin D,25 Hydroxy 66.9 ng/mL
== END | disposition home or self-care (01) ==
LOC: MFPLAB 16:36
PROVIDERS: PCP Family Medicine; Visit Provider Family Medicine
DX: E66.01 Morbid (severe) obesity due to excess calories (principal); E55.9 Vitamin D deficiency, unspecified
CPT/HCPCS: 36415; 80053; 80061; 82306; 85025

== ENCOUNTER → 2023-07-23 | Outpatient (CLI) | payer BC, MEDICAID, SELFPAY ==
[2023-07-23 17:49] LABS: Absolute Lymphocyte Count 2.29 X10^3/uL (0.83-4.51); Absolute Neutrophil Count 4.1 X10^3/uL (2.0-7.7); Basophil# 0.03 X10^3/uL; Basophil% 0.4 % (0-1); Eosinophil# 0.12 X10^3/uL; Eosinophils% 1.7 % (0-5); Hematocrit 43.5 % (37-47); Hemoglobin 13.9 g/dL (12.0-15.0); Lymphocyte # 2.29 X10^3/ul (0.83-4.51); Mean Corpuscular Hgb 27.5 pg (27.0-32.0); Mean Corpuscular Volume 86.1 fL (81-99); Monocyte# 0.37 X10^3/uL; Monocyte% 5.3 % (0-10); NRBC Flagged by Analyzer 0 % (0-5); Neutrophil % 59.2 % (47-70); Platelet Count 265 K/mm3 (150-450); RBC Distribution Width CV 13.6 % (11.6-14.6); RBC Distribution Width SD 42.4 fl (35.1-43.9); Red Blood Count 5.05 M/mm3 (4.2-5.4); White Blood Count 6.9 K/mm3 (4.4-11.0)
[2023-07-23 18:33] LABS: ALB/GLOB Ratio 0.9 RATIO (0.9-2.4); AST(SGOT) 17 U/L (15-37); Alanine Aminotransfer ALT/SGPT 35 U/L (13-56); Albumin, Serum 3.4 g/dL (3.2-5.0); Alkaline Phosphatase 76 U/L (45-117); Anion Gap 5 (5-15); BUN 12 mg/dL (7-18); BUN/Creat Ratio 13.6 RATIO (10-20); Calcium,Total 9.1 mg/dL (8.5-10.1); Chloride 109 mmol/L (98-107); Cholesterol 203 mg/dL (200); Creatinine, Serum 0.88 mg/dL (0.55-1.02); EST Glomerular Filtration Rate 72 mL/min (>60); Est Glom Filt Rate - Afr Amer 87 mL/min (>60); Globulin 3.7 g/dL (2.2-4.2); Glucose 106 mg/dL (74-106); High Density Lipoprotein 42 mg/dL; Potassium 3.7 mmol/L (3.5-5.1); Protein, Total 7.1 g/dL (6.4-8.2); Sodium Level 140 mmol/L (136-145); Triglycerides 222 mg/dL; Very Low Density Lipoprotein 44 mg/dL (5-40)
== END | disposition home or self-care (01) ==
LOC: MFPLAB 17:04
PROVIDERS: PCP Family Medicine; Visit Provider Family Medicine
DX: E66.01 Morbid (severe) obesity due to excess calories (principal)
CPT/HCPCS: 36415; 80053; 80061; 85025

== ENCOUNTER → 2023-07-29 | Outpatient (CLI) | payer BC, MEDICAID, SELFPAY ==
--- NOTE | 2023-07-29 18:35 | US_ITS ---
STUDY: THYROID ULTRASOUND REASON FOR EXAM: Female, 52 years old. NODULE-F/U TECHNIQUE: Ultrasound evaluation of the thyroid was performed with real-time and static malcolm-scale imaging. COMPARISON: 07/09/2022 FINDINGS: RIGHT LOBE: Status post right lobectomy. LEFT LOBE: The left lobe of the thyroid gland measures 5.9 x 1.9 x 1.9 cm. There is a heterogeneous echotexture. Nodule 1: Shrinking (10 x 7 x 6 mm from 13 x 12 x 9 mm) solid hypoechoic wider than tall ill-defined margin nodule and no echogenic foci (TR 4) in the medial left lobe consistent with an adenoma. Nodule 2: No change from 8 x 5 x 8 mm solid hypoechoic wider than tall smoothly marginated nodule and no echogenic foci consistent are 4) in the anterior left lobe consistent with an adenoma. Nodule 3: No change in the 6 x 5 x 5 mm solid hypoechoic wider than tall ill-defined margin nodule no echogenic foci (TR 4) in the posterior left lobe consistent with an adenoma. ISTHMUS: The isthmus measures 2 mm thick. . The regional lymph nodes are normal. US/Thyroid IMPRESSION: Multinodular thyroid gland with improved adenoma in the medial left lobe. Electronically Signed: Hao Mauricio MD at 19:45 EDT ,
== END | disposition home or self-care (01) ==
PROVIDERS: PCP Family Medicine; Visit Provider Family Medicine
DX: E04.1 Nontoxic single thyroid nodule (principal)
CPT/HCPCS: 76536

== ENCOUNTER → 2023-11-03 | Outpatient (CLI) | payer BC, MEDICAID, SELFPAY ==
--- OUTSIDE RECORDS SUMMARY | 2023-11-03 15:33 | XMS RPT_ITS | CCD ---
Author Name Unknown Address [id number] [place] [address] Organization [facility] Care Team Providers Care Construction Worker Name Role Phone Ethan Ba Primary Care Provider Walter Wright MD Unavailable [phone] Ethan Ba Primary Care Provider Unavailable Primary Care Provider Unavailabl e CHANCE, CHIQUIS Attending Unavailable CHANCE, CHIQUIS Referring Unavailable CHANCE, CHIQUIS Referring Unavailable CHANCE, CHIQUIS Attending Unavailable Allergies Allergy Classification Reported Allergen(s) Allergy Type Date of Onset Reaction(s) Facility (1 source) House dust mite; Translations: [DUST MITES] allergy to substance 9 [facility] Work Phone: (1 source) [place] [employer]; Translations: [ANIMALS] allergy to substance 9 [facility] Work Phone: (1 source) PLANT POLLENS; Translations: [PLANT POLLENS] allergy to substance 9 [facility] Work Phone: Medications Current Medications Medication Drug Class(es) Dates Sig (Normalized) Sig (Original) clonazePAM 0.5 mg oral tablet (6 sources) Benzodiazepine take 1 tablet by twice daily clonazePAM (KLONOPIN) 0.5 MG tablet Take 0.5 mg by mouth 2 times daily as needed.. 0 Active CPAP Machine MISC (4 sources) CPAP Machine MIS C Indications: DANILO by Does not apply route Indications: DANILO 0 Active fluticasone propionate 0.05 mg/actuat metered dose nasal spray (8 sources) Corticosteroid take 1 puff(s) by inhalation twice daily fluticasone (FLOVENT HFA) 220 MCG/ACT inhaler Indications: ASTHMA Inhale 1 puff into the lungs 2 times daily Indications: ASTHMA 0 Active Completed/Discontinued Medications Medication Drug Class(es) Dates Sig (Normalized) Sig (Original) 200 actuat albuterol 0.09 mg/actuat metered dose inhaler (10 sources) beta2-Adrenergic Agonist Start: 11-07-2018 PROAIR HFA 108 (90 Base) MCG/ACT AERS 2 puffs as needed ALBUTEROL SULFATE [id number] Walter Wright MD Problems Active Problems Problem Classification Problem Date Documented Date Episodic/Chronic Coagulation and hemorrhagic disorders (3 sources) Factor V Leiden mutation; Translations: [Activated protein C resistance] Onset: 11-01-2021 09-06-2023 Chronic Disorders of lipid metabolism (3 sources) Hyperlipidemia; Translations: [Hyperlipidemia, unspecified] Onset: 06-16-2012 06-16-2012 Chronic Esophageal disorders (7 sources) Gastroesophageal reflux disease; Translations: [Gastro-esophageal reflux disease without esophagitis] Onset: 06-30-2019 06-30-2019 Chronic Malaise and fatigue (4 sources) Fatigue; Translations: [Fatigue] 06-30-2019 Episodic Osteoarthritis (1 source) Unilateral primary osteoarthritis, right knee; Translations: [Unilateral primary osteoarthritis, right knee] Onset: 02-20-2019 02-20-2019 Chronic Other female genital disorders (3 sources) Premenstrual tension syndrome; Translations: [Premenstrual tension syndrome] Onset: 11-29-2012 11-29-2012 Chronic Other female genital disorders (1 source) Endocervical polyp; Translations: [Polyp of cervix uteri] 09-29-2023 Episodic Other female genital disorders (1 source) Polyp of cervix uteri; Translations: [Endocervical polyp] Onset: 09-29-2023 Episodic Other non-traumatic joint disorders (4 sources) Knee pain; Translations: [Joint pain, knee] 06-30-2019 Episodic Other nutritional; endocrine; and metabolic disorders (7 sources) Obesity; Translations: [Obesity, unspecified] Onset: 06-30-2019 06-30-2019 Chronic Other nutritional; endocrine; and metabolic disorders (1 source) Morbid obesity; Translations: [Morbid (severe) obesity due to excess calories] Onset: 02-20-2019 02-20-2019 Chronic Other screening for suspected conditions (not mental disorders or infectious disease) (1 source) Endometrium thickened; Translations: [Abnormal findings on diagnostic imaging of other specified body structures] 09-30-2023 Chronic Other screening for suspected conditions (not mental disorders or infectious disease) (1 source) Encounter for screening mammogram for malignant neoplasm of breast; Translations: [Encounter for screening mammogram for breast cancer] Onset: 09-29-2023 Episodic Residual codes; unclassified (7 sources) Obstructive sleep apnea syndrome; Translations: [Obstructive sleep apnea (adult) (pediatric)] Onset: 06-30-2019 06-30-2019 Chronic Spondylosis; intervertebral disc disorders; other back problems (4 sources) Backache; Translations: [Back pain] 06-30-2019 Episodic Past or Other Problems Problem Classification Problem Date Documented Da te Episodic/Chronic Other lower respiratory disease (7 sources) Dyspnea on exertion; Translations: [Shortness of breath] Onset: 06-16-2012 06-30-2019 Episodic Other non-traumatic joint disorders (3 sources) Pain in right knee; Translations: [Pain in joint, lower leg] Onset: 06-16-2012 06-16-2012 Episodic Phlebitis; thrombophlebitis and thromboembolism (1 source) Deep venous thrombosis of lower extremity; Translations: [Acute embolism and thrombosis of unspecified deep veins of right distal lower extremity] Onset: 05-08-2019 05-08-2019 Episodic Unclassified (1 source) Problem Results Test Name Value Interpretation Reference Range Facil it Vital Signs Date Time Vital Sign Value Performing Clinician Facility NEGATED: Highlighted [id number] 10:59-0400 BMI (Body Mass Index) 51.4 kg/m2 Nicolette Romannena AT [facility] Work Phone: NEGATED: Highlighted [id number] 10:59-0400 Body weight 127.01 kg Nicolette Torres AT [facility] Work Phone: NEGATED: Highlighted [id number] 10:590400 Body weight 127 kg Nicolette Torres AT [facility] Work Phone: NEGATED: Highlighted [id number] 10:59-0400 BP Diastolic 93 mm[Hg] Nicolette Dimos AT [facility] Work Phone: NEGATED: Highlighted [id number] 10:59-0400 BP Diastolic 81 mm[Hg] Nicolette Dimos AT [facility] Work Phone: NEGATED: Highlighted [id number] 10:59-0400 BP Systolic 134 mm[Hg] Nicolette Dimos AT [facility] Work Phone: NEGATED: Highlighted [id number] 10:59-0400 BP Systolic 146 mm[Hg] Nicolette Dimos AT [facility] Work Phone: NEGATED: Highlighted [id number] 10:59-0400 Height 157.48 cm Nicolette Dimos AT [facility] Work Phone: NEGATED: Highlighted [id number] 10:59-0400 Height 157 cm Nicolette Dimos AT [facility] Work Phone: NEGATED: Highlighted [id number] 10:59-0400 Pulse (Heart Rate) 89 /min Nicolette Dimos AT [facility] Work Phone: Encounters Encounter Date Encounter Type Care Provider Facility Start: 11-02-2023 ambulatory CHIQUIS CHANCE Facility: [facility] Start: 09-30-2023 Documentation procedure Mammog damaris Coordinator [facility] Start: 09-30-2023 Letter encounter Mammography Coordinator [facility] Start: 09-30-2023 Telephone encounter Chiquis correa APRN.CNP Work Phone: OB/Gynecology Procedures Date Procedure Procedure Detail Performing Clinician Start: 12-02-2020 Us breast uni real t grace with image limited Bonnie Amato Work Phone: Start: 12-02-2020 Diagnostic mammograp hy computer-aided detcj rashad Amato Work Phone: Start: 04-17-2020 Dup-scan xtr veins unilateral/limited study Rishin C Ba Work Phone: Start: 07-07-2019 Us breast uni real t grace with image limited Laura SandersGamaliel Maryoniel Work Phone: Start: 07-07-2019 Diagnostic mammograp hy computer-aided detcj uni Laura SandersGamaliel Maryoniel Work Phone: Start: 06-14-2019 Dup-scan xtr veins unilateral/limited study Rishin C Ba Work Phone: Start: 06-16-2012 Lipid 1996 panel - S kerry or Plasma Us 2 Work Phone: NEGATED: Highlighted rowStart: 05-08-2019 End: 05-08-2019 Documentation of current medications Nicolette Torres AT Plan of Treatment Date Care Activity Detail Author Start: 09-06-2028 HPV Testing HPV Testing [facility] Start: 09-06-2028 Pap Testing Pap Testing [facility] Start: 09-29-2024 Mammography Mammogram Screening [facility] Start: 07-02-2023 Influenza vaccination Influenza Vaccine (#1) [facility] Start: 11-01-2022 Depression Assessment Depression Assessment [facility] Start: 2022 Shingles Vaccine (1 of 2) Shingles Vaccine (1 of 2) [place] Start: 2022 Shingrix Vaccine (1 of 2) Shingrix Vaccine (1 of 2) [facility] Start: 06-16-2022 DTaP/Tdap/Td vaccine (2 - Td) DTaP/Tdap/Td vaccine (2 - Td) [place] Start: 06-16-2022 Urine microalbumin profile DTaP,Tdap,Td Vaccine (2 - Td or Tdap) [facility] Start: 12-02-2021 Mammography Mammogram Screening [facility] Start: 07-02-2020 Influenza vaccination Flu vaccine (Season Ended) [place], [place] Start: 07-02-2019 Influenza vaccination Flu vaccine (#1) [place] Start: 06-27-2019 End: 06-27-2019 Appointment 06/27/2019 Appointment Radiology Laura Kohler RN [address] [place] [address] [phone] [facility] Start: 05-08-2019 End: 05-08-2019 Appointment Appointment [facility] Work Phone: Start: 2017 Cologuard (FIT-DNA) Cologuard (FIT-DNA) [facility] Start: 2017 Colonoscopy Colonoscopy [facility] Start: 2017 Colorectal Cancer Screening Colorectal Cancer Screening [facility] Start: [address] Colonography [facility] Start: 2017 Diabetes Screening Diabetes Screening [facility] Start: 2017 Fecal Occult Blood Fecal Occult Blood [facility] Start: 2017 Lipid 1996 panel - Serum or Plasma Lipid Screening [facility] Start: 2017 Sigmoidoscopy Sigmoidoscopy [facility] Start: 2012 Diabetes screen Diabetes screen [place], [place] Start: 2012 Lipid panel Lipid screen [place] Start: 2012 Lipid screen Lipid screen [place] Start: 1993 Cervical cancer screen Cervical cancer screen [place], [place] Start: 1993 Screening for malignant neoplasm of cervix Cervical cancer screen [place] Start: 1991 DTaP/Tdap/Td vaccine (1 - Tdap) DTaP/Tdap/Td vaccine (1 - Tdap) [place] Start: 1987 HIV screen HIV screen [place] Start: 1987 HIV screening HIV screen [place] Start: 03-15-1973 Covid-19 Vaccine (#1) Covid-19 Vaccine (#1) [facility] Start: 1972 Hepatitis B Vaccine (1 of 3 - 3-dose series) Hepatitis B Vaccine (1 of 3 - 3-dose series) [facility] Start: 1972 Hepatitis C screening Hepatitis C screen [place], [place] Endometrial bx w/wo endocervix bx w/o dilat spx ENDOMETRIAL BIOPSY Procedures Routine Endometrial thickening on ultrasound Ordered: 09/30/2023 [facility] Work Phone: Immunizations Immunization Date Immunization Notes Care Provider Alfredito loera 06-16-2012 tetanus toxoid, redu guille diphtheria toxoid, and acellular pertussis vaccine, adsorbed Us 2 Work Phone: [facility] Work Phone: Payers Date Payer Category Payer Unknown [employer] BLUE C[employer] PPO OOS [id number] 2022-Present [phone] [address] [address] [place] [address] PPO [id number] 2022 Unknown [id number] 2018 Unknown BCBS [place] - [place] P PO xxxxxxxxxxxxxxx 2018-Present [address] [place] [address] xxxxxxxxxxxxxxx [id number] 2018 Unknown BCBS [place] P PO [id number] 2018-Present [address] [place] [address] [id number] Social History Date Type Detail Facility Start: 10-07-2012 End: 06-30-2019 Tobacco smoking status NHIS Former smoker [facility] Start: 06-30-2019 End: 09-06-2023 Alcohol intake No [place], [place] Start: 10-28-2018 Tobacco Comment Quit 2004 [place], [place] Sex Assigned At Not on file [place] Start: 06-30-2019 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) [place] Start: 05-08-2019 End: 05-08-2019 Assertion Unknown if ever smoked [facility] Work Phone: Start: 10-07-2012 End: 06-30-2019 Tobacco use and exposure Never used [facility] BECKY DAMON End: 05-04-2005 History of tobacco use Current smoker [facility] End: 05-04-2005 History of tobacco use Cigarette Smoker [facility] Start: 09-06-2023 Alcohol intake Ex-drinker (finding) [facility] Start: 09-06-2023 History of Social function [facility] Start: 1970 Sex Assigned At Female [facility] Start: 09-06-2023 Gender identity Identifies as female gender (finding) [facility] Start: 09-06-2023 Sexual orientation Homosexual (findi ng) [facility] Progress note 11-02-2023 Note Date & Type Note Facility 11-02-2023 Note HNO ID: [id number] Author: Chiquis Amato APRN.FINANCIAL INSTITUTION MANAGER Service: ? 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 test: n/a UNIVERSAL PROTOCOL / SAFETY CHECKLIST Procedure to be Performed: Endometrial biopsy Sign In: A Moment of CARE was completed. Personnel directly involved with the procedure wore the appropriate PPE (Personal Protective Equipment). Patient/Surrogate Stated/Verified: PATIENT VERIFIED(optional for EMERGENT procedures): Patient name, Date of , Relevant allergies, and The intended procedure Time Out Communication: Intended patient and procedure match the source documents. Consent documented and matches the intended procedure. Sign Out: SIGN OUT (optional for EMERGENT procedures): All specimen containers correctly labeled. All instruments, equipment, possible retained foreign bodies accounted for. Post-procedure follow-up management communicated and Plan of Care Visit completed when applicable. Shereen Winters LPN PROCEDURE: EXTERNAL GENITALIA: Normal in appearance without lesions VAGINA: Normal in appearance without lesions BIOPSY: Speculum placed into the vagina with excellent visualization of the cervix. Cervix cleaned with betadine. Anterior lip of cervix grasped with single toothed tenaculum. Uterus sounded to 9 cm. Pipelle inserted into the uterus without difficulty and endometrial biopsy obtained. Specimen labeled and sent to pathology. Hemostasis achieved. Procedure Summary: Patient tolerated procedure well. ASSESSMENT: thickening of endometrial lining PLAN: Specimens labeled and sent to Pathology. Will notify patient of results in 1-2 weeks. Post-procedure instructions reviewed and written material given to the patient. FSH, Estradiol orders Chiquis Amato APRN.FINANCIAL INSTITUTION MANAGER [facility] Note 09-30-2023 Letter - Coordinator, Mammography - 09/30/2023 4:36 PM EST Note Date & Type Note Facility 09-30-2023 Miscellaneous Notes Formattin g of this note might be different from the original. October 01, 2023 PID: [id number] Miguelina Lind [address] [place] [address] Dear Ms. Lind, We are pleased to inform you that the results of your recent breast imaging exam on 09/29/2023 are normal. Early detection of cancer is very important. We also understand recommendations regarding breast cancer screening are controversial. Please discuss with your primary care provider which strategy is best for you and whether a mammogram is right for you. Your imaging studies and report will be kept on file at [facility] as part of your permanent medical record and are available for your continuing care. Thank you for allowing us to help in meeting your health care needs. Sincerely, Dr. Fountain Interpreting Radiologist [facility] (Normal over 40) documented in this encounter [facility] Note 09-30-2023 Telephone Encounter - Laura Westbrook RN - 09/30/2023 12:31 PM ESTTelephone Encounter - Anabela Gonzalez RN - 09/30/2023 11:34 AM EST Note Date & Type Note Facility 09-30-2023 Miscellaneous Notes Formattin g of this note might be different from the original. Patient notified. Appointment given. Laura Westbrook RN Left message to call office. Anabela Gonzalez RN Please let the patient know that her ultrasound shows no more polyps but shows that the endometrial lining is pretty thick and I would like to do an endometrial biopsy to ensure there is nothing abnormal going on. Order filed. Cytotec ordered. Chiquis Amato APRN.BERENICE documented in this encounter [facility] Progress note 09-29-2023 Note Date & Type Note Facility 09-29-2023 Note HNO ID: [id number] Author: Racquel Dick RDMS Service: ? Author Type: Dairy Lab Technician Type: Progress Notes Filed: 09/29/2023 1:21 PM Note Text: Radiology Service Progress Note PATIENT NAME: Miguelina Lind DATE OF SERVICE: September 29, 2023 TIME: 1:21 PM PATIENT IDENTITY VERIFICATION COMPLETED USING TWO (2) IDENTIFIERS: Name and Date of confirmed by patient verbally. FALL SCREENING: Has the patient had 2 falls in the last year or 1 fall with injury or currently using an Ambulatory Assistive Device (Walker, Cane, Wheelchair, Crutches, etc.)? No PATIENT GENDER DATA: Female. status: : No status: NO. PATIENT RELEVANT IMPLANT DATA REVIEWED: Not Applicable RADIOLOGY DEPARTMENT: Ultrasound PERIPHERAL IV DATA: Not applicable SIGNED BY: Racquel Dick RDMS RVT September 29, 2023 1:[address] [facility] History of Present illness Narrative 09-29-2023 Racquel Dick RDMS - 09/29/2023 11:30 AM EST Note Date & Type Note Facility 09-29-2023 History of Presen t illness Narrative Radiology Service Progress Note PATIENT NAME: Miguelina Lind DATE OF SERVICE: September 29, 2023 TIME: 1:21 PM PATIENT IDENTITY VERIFICATION COMPLETED USING TWO (2) IDENTIFIERS: Name and Date of confirmed by patient verbally. FALL SCREENING: Has the patient had 2 falls in the last year or 1 fall with injury or currently using an Ambulatory Assistive Device (Walker, Cane, Wheelchair, Crutches, etc.)? No PATIENT GENDER DATA: Female. status: : No status: NO. PATIENT RELEVANT IMPLANT DATA REVIEWED: Not Applicable RADIOLOGY DEPARTMENT: Ultrasound PERIPHERAL IV DATA: Not applicable SIGNED BY: Racquel Dick RDMS RVT September 29, 2023 1:21 PM documented in this encounter [facility] Progress note 09-06-2023 Note Date & Type Note Facility 09-06-2023 Note HNO ID: [id number] Author: Chiquis Amato APRN.FINANCIAL INSTITUTION MANAGER Service: ? Author Type: Nurse Practitioner Type: Progress Notes Filed: 09/06/2023 3:24 PM Note Text: Starch Mangle Tender offered: Patient declinesGamaliel Mcintyre is a 52 year old who presents for an annual gynecologic exam without complaints. Pt states that her PCP checked hormone level a year ago and they were not postmenopausal. Postmenopausal: No. Menstrual cycle irregular very little spotting a few times a year HRT use: No. 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 PAST SURGICAL HISTORY Procedure Laterality Date BREAST BIOPSY W/STEREOTACTIC GUIDANCE 12/10/14 left breast DELIVERY ONLY , low transverse PAST SURGICAL HISTORY OF surgery to ovary 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 THYROID SURGERY HX 12/2014 FAMILY HISTORY Problem Relation Age of Onset Hypertension Mother Diabetes Mother borderline Diabetes Father borderline other (Gout) Father other (lung can) Maternal Grandmother other (lung cancer) Paternal Grandmother other (Other) Paternal Grandmother No breast/rotary furnace operator/cancer/skin canc SOCIAL HISTORY Social History Tobacco Use Smoking status: Former Types: Cigarettes Quit date: 05/04/2005 Years since quittin.3 Smokeless tobacco: Never Substance Use Topics Alcohol use: No Drug use: No REVIEW OF SYSTEMS Abdomen: No abdominal pain, nausea, vomiting, diarrhea, or constipation. No bloating, early satiety, indigestion, or increased flatulence. Bladder: No dysuria, gross hematuria, urinary frequency, urinary urgency, or incontinence Breast: No breast lumps, nipple d/c, overlying skin changes, redness or skin retraction Allergies and current medication updated:Yes EXAM: LMP 03/09/2017 GENERAL: pleasant, female in no apparent distress HEENT: Normocephalic, atraumatic, mucus membranes moist, and no lesions NECK: Supple, full range of motion, no adenopathy, and thyroid normal DERMATOLOGY: Normal, without lesions, non-icteric, and non-hirsute BREAST: soft, non-tender, symmetric, no dominant mass, normal nipple-areolar complex, no lymphadenopathy, and no nipple discharge CHEST: Normal inspiratory effort ABDOMEN: soft, non-tender, and no masses PELVIC: external genitalia normal, normal Bartholin's glands, urethra, [place]'s glands, no vulvar lesions, good vaginal support, physiologic discharge present, normal appearing perineal body and perianal region, large cervical polyp BIMANUAL: uterus normal size, shape and consistency, no adnexal masses, and non-tender RECTOVAGINAL: deferred. NEURO: alert and oriented x3,exam grossly non-focal EXTREMITIES: normal ASSESSMENT/PLAN: 1) Health maintenance: Pap done with HPV. Mammogram ordered Nutrition, exercise and routine health maintenance exams reviewed. Calcium/Vitamin D supplementation information provided. 2) Follow up one year or sooner as needed Chiquis Amato APRN.BERENICE Lind presents for removal of a endocervical polyp noted on exam. She reports no symptoms. UNIVERSAL PROTOCOL / SAFETY CHECKLIST Procedure to be Performed: cervical polypectomy Sign In: A Moment of CARE was completed. Personnel directly involved with the procedure wore the appropriate PPE (Personal Protective Equipment). Patient/Surrogate Stated/Verified: PATIENT VERIFIED(optional for EMERGENT procedures): Patient name, Date of , Relevant allergies, and The intended procedure Time Out Communication: Intended patient and procedure match the source documents. Consent documented and matches the intended procedure. Sign Out: SIGN OUT (optional for EMERGENT procedures): All specimen containers correctly labeled. All instruments, equipment, possible retained foreign bodies accounted for. Post-procedure follow-up management communicated and Plan of Care Visit completed when applicable. Chiquis Amato APRN.CNP PROCEDURE: EXTERNAL GENITALIA: Normal in appearance without lesions VAGINA: Normal in appearance without lesions endocervical polyp was grasped with ring forceps and removed with gentle twisting motion. Hemostasis at the base of the polyp was secured with pressure. Specimen was labeled and sent to pathology. Patient tolerated procedure well. Plan: Specimens labeled and sent to Pathology. Will notify patient of results in 1-2 weeks.Will notify patient of test results. Post-procedure (more content not included)... [facility] Evaluation note Note Date & Type Note Facility documented in this encounter [facility] Evaluation note Note Date & Type Note Facility documented in this encounter [facility] Reason for referral (narrative) Outpatient Procedure (Routine) - Pending Review Note Date & Type Note Facility Referral ID Status Reason Start Date Expiration Date Visits Requested Visits Authorized [id number] Pending Review Auto-Generat ed Referral 3 09/29/2024 1 1 [facility] Advance Directives No Advanced Directives Records FoundDocuments on File Type Date Recorded Patient Reinsurance Accountant Expl anation Advance Directives and Living Will Power of Community Planner Documents on File Type Date Recorded Patient Reinsurance Accountant Expl anation ACP-Advance Directive ACP-Power of Community Planner Chief Complaint Chief Complaint Description Start Date right knee pain Preliminary chief co mplaint data, not yet signed by the author as of Instructions Instruction Description Start Date CompletedPlease follow-up wi Primary Care Physician or Front Office Help for treatment or adjustment of medication regarding elevated blood pressure.Patient advised to follow-up with Primary Care Physician for BMI management. Assessments There may be information available, but it has not been provided by the sender. Review of System There may be information available, but it has not been provided by the sender. Family History There may be information available, but it has not been provided by the sender.No Family History Records FoundNo Family History Records FoundNo Family History Records FoundNo Family History Records Found History of Present Illness There may be information available, but it has not been provided by the sender. Summary Purpose Additional Source Comments Reason for Visit (unrecogniz ed section and content) Reason Comments Radiology US Specialty Diagnoses / Procedures Referred By Contac t Referred To Contact US IMAGING Diagnoses Endocervical polyp Procedures US FEMALE PELVIS TRANSVAG US TRANSVAGINAL Chiquis Amato APRN.FINANCIAL INSTITUTION MANAGER [address] [place] [address] [place] [address] Referral ID Status Reason Start Date Expiration Date V isits Requested Visits Authorized [id number] Closed Auto-Generate d Referral 09/06/2023 10/05/2024 1 1 Reason Comments Results INFORMATION SOURCE (unrecogn ized section and content) DATE CREATED AUTHOR AUTHOR'S ORGANIZ ATION 05/25/2021 [facility] DATE CREATED AUTHOR AUTHOR'S ORGANIZ ATION 05/26/2021 [facility] DATE CREATED AUTHOR AUTHOR'S ORGANIZ ATION 11/03/[address] [facility] Source Comments (unrecognize d section and content) In the event this informatio n is protected by the Federal Confidentiality of Alcohol and Drug Abuse Patient Records regulations: The Federal rules restrict any use of the information to criminally investigate or prosecute any alcohol or drug abuse patient.[facility] the event this information is protected by the Federal Confidentiality of Alcohol and Drug Abuse Patient Records regulations: The Federal rules restrict any use of the information to criminally investigate or prosecute any alcohol or drug abuse patient.[facility] Hospital[facility] the event this information is protected by the Federal Confidentiality of Alcohol and Drug Abuse Patient Records regulations: The Federal rules restrict any use of the information to criminally investigate or prosecute any alcohol or drug abuse patient.[facility] FOR RECORDS PERTAINING TO PATIENTS WHO ARE OR HAVE BEEN ENROLLED IN A CHEMICAL DEPENDENCY/SUBSTANCEABUSE PROGRAM, SOME INFORMATION MAY BE OMITTED. This clinical summary was aggregated from multiple sources. Caution should be exercised in using it in the provision of clinical care. This summary normalizes information from multiple sources, and as a consequence, information in this document may materially change the coding, format and clinical context of patient data. In addition, data may be omitted in some cases. CLINICAL DECISIONS SHOULD BE BASED ON THE PRIMARY CLINICAL RECORDS. [facility] [employer] [facility]. provides no warranty or guarantee of the accuracy or completeness of information in this document.
[2023-11-03 17:33] LABS: Absolute Neutrophil Count 4.7 X10^3/uL (2.0-7.7); Basophil# 0.03 X10^3/uL; Basophil% 0.4 % (0-1); Eosinophils% 1.3 % (0-5); Hematocrit 42.9 % (37-47); Hemoglobin 13.6 g/dL (12.0-15.0); Lymphocyte % 28.3 % (19-41); Mean Corp Hgb Conc 31.7 g/dL (32-36); Mean Corpuscular Hgb 27.4 pg (27.0-32.0); Mean Corpuscular Volume 86.3 fL (81-99); Mean Platelet Vol. 10.5 fl (6.2-12.0); Monocyte# 0.44 X10^3/uL; Monocyte% 5.9 % (0-10); NRBC Flagged by Analyzer 0 % (0-5); Neutrophil # 4.73 X10^3/uL (2.7-7.7); Neutrophil % 63.7 % (47-70); Platelet Count 272 K/mm3 (150-450); RBC Distribution Width CV 13.4 % (11.6-14.6); RBC Distribution Width SD 41.3 fl (35.1-43.9); Red Blood Count 4.97 M/mm3 (4.2-5.4); White Blood Count 7.4 K/mm3 (4.4-11.0)
[2023-11-03 18:27] LABS: AST(SGOT) 20 U/L (15-37); Alanine Aminotransfer ALT/SGPT 28 U/L (13-56); Albumin, Serum 3.4 g/dL (3.2-5.0); Alkaline Phosphatase 78 U/L (45-117); Anion Gap 7 (5-15); BUN 15 mg/dL (7-18); Chloride 105 mmol/L (98-107); Creatinine, Serum 0.88 mg/dL (0.55-1.02); EST Glomerular Filtration Rate 72 mL/min (>60); Est Glom Filt Rate - Afr Amer 87 mL/min (>60); Globulin 3.5 g/dL (2.2-4.2); Glucose 100 mg/dL (74-106); Potassium 3.9 mmol/L (3.5-5.1); Protein, Total 6.9 g/dL (6.4-8.2); Sodium Level 139 mmol/L (136-145)
[2023-11-03 18:36] LABS: Estradiol 13.3 pg/mL; Follicle Stimulating Hormone 60.5 mIU/mL
== END | disposition home or self-care (01) ==
PROVIDERS: Nurse Practitioner; PCP Family Medicine; Visit Provider Family Medicine
DX: Z78.0 Asymptomatic menopausal state (principal); R93.89 Abnormal findings on diagnostic imaging of other specified body structures; E55.9 Vitamin D deficiency, unspecified; K21.9 Gastro-esophageal reflux disease without esophagitis
CPT/HCPCS: 36415; 80053; 82306; 82670; 83001; 85025

== ENCOUNTER 2023-11-18 11:00 | Day surgery (SDC) | payer BC, MEDICAID, SELFPAY ==
[2023-11-18] VITALS (7 sets, daily range): BP systolic 110–145; BP diastolic 66–98; PULSE 78–83; RESP 16–18; TEMP 36.3–37; O2SAT 96–99; BMI 52.4
[2023-11-18] MEDS: Cefazolin 2 GM in 0.9% Normal Saline (100mL Bag) 100 ML IV (13:13)
--- NOTE | 2023-11-18 13:44 | OP.PCM_ITS ---
Operative Report Date of Procedure: 11/18/23
--- NOTE | 2023-11-18 13:44 | OP.PCM_ITS ---
Report of Operation Date of Procedure: 11/18/23 Pre-Operative Diagnosis: A1 stenosing tenosynovitis RMF Post-Operative Diagnosis: same Surgery/Procedure Performed:: Release A1 gurpreet RMF Description of Surgical Findings:: Report of Operation Date of Procedure: 11/18/23 Preoperative Diagnosis: A1 stenosing tenosynovitis, right [middle ] finger Postoperative Diagnosis: same Procedure Performed: A1 stenosing tenosynovitis, right [middle ] finger Anesthesia: IV Regional Anesthesiologist: Connor Eldridge M.D. Description of Procedure: With appropriate informed consent, the patient was taken to the operative suite. After the induction of regional anesthesia, the right upper extremity was prepared and draped sterilely. Subsequently, a transverse incision was made in the base of the [right middle ] finger on the volar aspect overlying the annular gurpreet with #15 blade scalpel. Hemostasis was perfected with bipolar electrocautery. Dissection was carried down to the flexor tendon sheath. Retractors were placed medially and laterally for protection of neurovascular structures. Thereafter, the annular gurpreet was incised with a combination of scalpel and scissor dissection. The flexor tendon was inspected and I was able to take the right [middle ] finger through a full range of motion without any catching, locking or triggering. Subsequently, the wound was irrigated and closed with interrupted sutures of 4-0 nylon. A sterile well- padded dressing and Nicolas wrap were applied. The tourniquet was released. Excellent blood flow returned to the right upper extremity. The patient was transferred to the PACU in stable and satisfactory condition. Michael Fregoso DO Surgeon: Michael Fregoso air and missile defense crewmember: None Type of Anesthesia: Block,Mikala Anesthesiologist: Connor Eldridge Admit VTE Documentation VTE Present on Admission: No VTE Mechan Device Prophylaxis: SCD's VTE Pharm Prophylaxis ordered?: No Reason prophylaxis not ordered:: Treatment Not Indicated
--- NOTE | 2023-11-18 13:44 | PCM.OP.BLANK ---
Operative Report Date of Procedure: 11/18/23
== END 2023-11-18 15:00 | disposition home or self-care (01) ==
LOC: SDC 11:03 → AC 11:06
PROVIDERS: PCP Family Medicine; Referring Provider Orthopaedic Surgery; Visit Provider Orthopaedic Surgery
PROC: (CPT 26055; principal; 2023-11-18 12:20)
DX: M65.331 Trigger finger, right middle finger (principal); E66.01 Morbid (severe) obesity due to excess calories; Z68.43 Body mass index [BMI] 50.0-59.9, adult; R03.0 Elevated blood-pressure reading, without diagnosis of hypertension; M19.041 Primary osteoarthritis, right hand; Z87.891 Personal history of nicotine dependence; Z86.718 Personal history of other venous thrombosis and embolism; K21.9 Gastro-esophageal reflux disease without esophagitis; F32.9 Major depressive disorder, single episode, unspecified; F41.9 Anxiety disorder, unspecified; Z87.19 Personal history of other diseases of the digestive system; Z87.39 Personal history of other diseases of the musculoskeletal system and connective tissue
CPT/HCPCS: 26055; 01810; J7120; J2405

== ENCOUNTER → 2023-11-29 | Outpatient (CLI) | payer BC, SELFPAY ==
--- OUTSIDE RECORDS SUMMARY | 2023-11-29 08:47 | XMS RPT_ITS | CCD ---
Author Name Unknown Address [address] [place] [address] Organization [facility] Care Team Providers Care Histology Tech Name Role Phone Ethan Ba Primary Care Provider Walter Wright MD Unavailable Ethan Ba Primary Care Provider Unavailable Primary Care Provider Unavailabl e CHANCE, CHIQUIS Referring Unavailable CHANCE, CHIQUIS Attending Unavailable CHANCE, CHIQUIS Referring Unavailable CHANCE, CHIQUIS Referring Unavailable CHANCE, CHIQUIS Attending Unavailable Allergies Allergy Classification Reported Allergen(s) Allergy Type Date of Onset Reaction(s) Facility (1 source) House dust mite; Translations: [DUST MITES] allergy to substance 9 [facility] Work Phone: (1 source) Kingdom Animalia; Translations: [ANIMALS] allergy to substance 9 [facility] Work Phone: (1 source) PLANT POLLENS; Translations: [PLANT POLLENS] allergy to substance 9 [facility] Work Phone: Medications Current Medications Medication [...] AERS 2 puffs as needed ALBUTEROL SULFATE [id number] Walter Wright MD Problems Active Problems Problem [...] Sign Value Performing Clinician Facility NEGATED: Highlighted [id number] 10:59-0400 BMI (Body Mass Index) 51.4 kg/m2 Nicolette Torres AT [facility] Work Phone: NEGATED: Highlighted [id number] 10:59-0400 Body weight 127.01 kg Nicolette Torres AT [facility] Work Phone: NEGATED: Highlighted [id number] 10:59-0400 Body weight 127 kg Nicolette Dimos AT [facility] Work Phone: NEGATED: Highlighted [id number] 10:59-0400 BP Diastolic 93 mm[Hg] Nicolette Dimos AT [facility] Work Phone: NEGATED: Highlighted [id number] 10:59-0400 BP Diastolic 81 mm[Hg] Nicolette Dimos AT [facility] Work Phone: NEGATED: Highlighted [id number] 10:59-0400 BP Systolic 134 mm[Hg] Nicolette Dimos AT [facility] Work Phone: NEGATED: Highlighted [id number] 10:59-0400 BP Systolic 146 mm[Hg] Nicolette Dimos AT [facility] Work Phone: NEGATED: Highlighted [id number] 10:59-0400 Height 157.48 cm Nicolette Dimos AT [facility] Work Phone: NEGATED: Highlighted [id number] 10:59-0400 Height 157 cm Nicolette Dimos AT [facility] Work Phone: NEGATED: Highlighted [id number] 10:59-0400 Pulse (Heart Rate) 89 /min Nicolette Dimos AT [facility] Work Phone: Encounters Encounter Date Encounter Type Care Provider Facility Start: 11-02-2023 End: 11-03-2023 ambulatory [facility] Facility:[facility] Start: 09-30-2023 Documentation procedure Mammog damaris Coordinator [facility] Start: 09-30-2023 Letter encounter Mammography Coordinator [facility] Department Start: 09-30-2023 Telephone encounter Chiqu[facility] SURVEILLANCE AGENT.PROCESS DESIGN CHEMICAL ENGINEER Work Phone: OB/Gynecology Procedures Date Procedure Procedure [...] 07-07-2019 Diagnostic mammograp hy computer-aided detcj uni Lauramarge Aguilaret Work Phone: Start: 06-14-2019 Dup-scan xtr veins unilateral/limited study Rishin C Ba Work Phone: Start: 06-16-2012 Lipid 1996 panel - S kerry or Plasma [facility] 2 Work Phone: NEGATED: Highlighted rowStart: 05-08-2019 End: 05-08-2019 Documentation of current medications Nicolette Torres AT Plan of Treatment Date Care Activity Detail Author Start: 09-06-2028 HPV Testing HPV Testing [facility] Start: 09-06-2028 Pap Testing Pap Testing [facility] Start: 09-29-2024 Mammography Mammogram Screening [facility] Start: 07-02-2023 Influenza [facility] Start: 11-01-2022 Depression Assessment Depression Assessment [facility] Start: 2022 Shingles Vaccine (1 of 2) Shingles Vaccine (1 of 2) [place] Start: 2022 Shingrix Vaccine (1 of 2) Shingrix Vaccine (1 of 2) [facility] Start: 06-16-2022 DTaP/Tdap/Td vaccine (2 - Td) DTaP/Tdap/Td vaccine (2 - Td) [place] Start: 06-16-2022 Urine microalbumin profile DTaP,Tdap,Td Vaccine (2 - Td or Tdap) [facility] Start: 12-02-2021 Mammography Mammogram Screening [facility] Start: 07-02-2020 Influenza vaccination Flu vaccine (Season Ended) [place] Start: 07-02-2019 Influenza vaccination Flu vaccine (#1) [place] Start: 06-27-2019 End: 06-27-2019 Appointment 06/27/2019 Appointment Radiology Laura Kohler RN [address] [address] [phone] [facility] Mammography Start: 05-08-2019 End: 05-08-2019 Appointment Appointment [facility] Work Phone: Start: 2017 Cologuard (FIT-DNA) Cologuard (FIT-DNA) [facility] Start: 2017 Colonoscopy Colonoscopy [facility] Start: 2017 Colorectal Cancer Screening Colorectal Cancer Screening [facility] Start: [address] Colonography [facility] Start: 2017 Diabetes Screening Diabetes Screening [facility] Start: 2017 Fecal Occult Blood Fecal Occult Blood [facility] Start: 2017 Lipid 1996 panel - Serum or Plasma Lipid Screening [facility] Start: 2017 Sigmoidoscopy Sigmoidoscopy [facility] Start: 2012 Diabetes screen Diabetes screen [place], [place] Start: 2012 Lipid panel Lipid screen [place] Start: 2012 Lipid screen Lipid screen [place] Start: 1993 Cervical cancer screen Cervical cancer screen [place] Start: 1993 Screening for malignant neoplasm of cervix Cervical cancer screen [place] Start: 1991 DTaP/Tdap/Td vaccine (1 - Tdap) DTaP/Tdap/Td vaccine (1 - Tdap) [place] Start: 1987 HIV screen HIV screen [place] Start: 1987 HIV screening HIV screen [place] Start: 03-15-1973 Covid-19 Vaccine (#1) Covid-19 Vaccine (#1) [facility] Start: 1972 Hepatitis B Vaccine (1 of 3 - 3-dose series) Hepatitis B Vaccine (1 of 3 - 3-dose series) [facility] Start: 1972 Hepatitis C screening Hepatitis C screen [place] Endometrial bx w/wo endocervix bx w/o dilat spx ENDOMETRIAL BIOPSY Procedures Routine Endometrial thickening on ultrasound Ordered: 09/30/2023 [facility] Work Phone: Immunizations Immunization Date Immunization Notes Care Provider Alfredito loera 06-16-2012 tetanus toxoid, redu guille diphtheria toxoid, and acellular pertussis vaccine, adsorbed [facility] 2 Work Phone: [facility] Work Phone: Payers Date Payer Category Payer Unknown [employer] BL[employer] C[employer] PPO OOS [id number] 2022-Present [phone] [address] [place] [address] PPO [id number] 2022 Unknown [id number] 2018 Unknown BCBS [place] - [place] P PO xxxxxxxxxxxxxxx 2018-Present [address] [place] [address] xxxxxxxxxxxxxxx [id number] 2018 Unknown [place] P PO [id number] 2018-Present [address] [place] [address] [id number] Social History Date Type Detail Facility Start: 10-07-2012 End: 06-30-2019 Tobacco smoking status NHIS Former smoker [facility] Start: 06-30-2019 End: 09-06-2023 Alcohol intake No [place] Start: 10-28-2018 Tobacco Comment Quit 2005 [address] [place] Sex Assigned At Not on file [place] Start: 06-30-2019 Alcohol intake 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) [place] Start: 05-08-2019 End: 05-08-2019 Assertion Unknown if ever smoked [facility] Work Phone: Start: 10-07-2012 End: 06-30-2019 Tobacco use and exposure Never used [place] End: 05-04-2005 History of tobacco use Current smoker [facility] End: 05-04-2005 History of tobacco use Cigarette Smoker [facility] Start: 09-06-2023 Alcohol intake Ex-drinker (finding) [facility] Start: 09-06-2023 History of Social function [facility] Start: 1970 Sex Assigned At Female C [facility] Start: 09-06-2023 Gender identity Identifies as female gender (finding) [facility] Start: 09-06-2023 Sexual orientation Homosexual (findi ng) [facility] Progress note 11-02-2023 Note Date & Type Note Facility 11-02-2023 Note HNO ID: [id number] Author: Chiquis Amato APRN.PROCESS DESIGN CHEMICAL ENGINEER Service: ? Author Type: Nurse Practitioner Type: Progress Notes Filed: 11/02/2023 2:39 PM Note Text: patient declined psychologist industrial organizational Miguelina is a 53 year old Female [...] the patient. FSH, Estradiol orders Chiquis Amato APRN.PROCESS DESIGN CHEMICAL ENGINEER [facility] Note 09-30-2023 Letter - Coordinator, Mammography - 09/30/2023 4:36 PM EST Note Date & Type Note Facility 09-30-2023 Miscellaneous Notes Formattin g of this note might be different from the original. October 01, 2023 PID: [id number] Miguelina Lind [address] [place] [address] Dear Ms. Lind, We are pleased to [...] report will be kept on file at [facility] as part of your permanent medical record and are available for your continuing care. Thank you for allowing us to help in meeting your health care needs. Sincerely, Dr. Fountain Interpreting Radiologist [facility] (Normal over 40) documented in this encounter [facility] Note 09-30-2023 Telephone Encounter - Laura [...] Chiquis Amato APRN.CNP documented in this encounter [facility] Progress note 09-29-2023 Note Date & Type Note Facility 09-29-2023 Note HNO ID: [id number] Author: Racquel Dick RDMS Service: ? Author Type: Metal Cabinet Finisher Type: Progress Notes Filed: 09/29/2023 1:21 PM [...] RDMS RVT September 29, 2023 1:21 PM [facility] History of Present illness Narrative 09-29-2023 Racquel [...] 2023 1:21 PM documented in this encounter [facility] Progress note 09-06-2023 Note Date & Type Note Facility 09-06-2023 Note HNO ID: [id number] Author: Chiquis Amato APRN.PROCESS DESIGN CHEMICAL ENGINEER Service: ? Author Type: Nurse Practitioner Type: Progress Notes Filed: 09/06/2023 3:24 PM Note Text: Pan Pusher offered: Patient declinesGamaliel Mcintyre is a 52 [...] L2 SAB0 IAB0 Ectopic0 Multiple0 Live Births0 Intermediate Card Tender History LMP: 03/09/2017 (Within Days), Having periods Age at Menarche: Age at First : Age at Menopause: Intermediate Card Tender History Comments: Sexual Activity: Yes; Female Contraception: [...] Paternal Grandmother other (Other) Paternal Grandmother No breast/nurse gynecology/cancer/skin canc SOCIAL HISTORY Social History Tobacco Use [...] external genitalia normal, normal Bartholin's glands, urethra, Lovilia's glands, no vulvar lesions, good vaginal support, [...] test results. Post-procedure (more content not included)... [facility] Evaluation note Note Date & Type Note Facility documented in this encounter [facility] Evaluation note Note Date & Type Note Facility documented in this encounter [facility] Reason for referral (narrative) Outpatient Procedure (Routine) - Pending Review Note Date & Type Note Facility Referral ID Status Reason Start Date Expiration Date Visits Requested Visits Authorized [id number] Pending Review Auto-Generat ed Referral 3 09/29/2024 1 1 [facility] Advance Directives No Advanced Directives Records FoundDocuments on File Type Date Recorded Patient Web Press Roll Tender Expl anation Advance Directives and Living Will Power of Inspector Machine Cut Glass Documents on File Type Date Recorded Patient Web Press Roll Tender Expl anation ACP-Advance Directive ACP-Power of Inspector Machine Cut Glass Chief Complaint Chief Complaint Description Start Date right knee pain Preliminary chief co mplaint data, not yet signed by the author as of Instructions Instruction Description Start Date CompletedPlease follow-up wi th Primary Care Physician or Retail Store Clerk for treatment or adjustment of medication regarding [...] FEMALE PELVIS TRANSVAG US TRANSVAGINAL Chiquis Amato APRN.PROCESS DESIGN CHEMICAL ENGINEER [address] [place] [address] [place] [address] Referral ID Status Reason Start Date Expiration Date V isits Requested Visits Authorized [id number] Closed Auto-Generate d Referral 09/06/2023 10/05/2024 1 1 Reason Comments Results INFORMATION SOURCE (unrecogn ized section and content) DATE CREATED AUTHOR AUTHOR'S ORGANIZ ATION 05/25/2021 [facility] DATE CREATED AUTHOR AUTHOR'S ORGANIZ ATION 05/26/2021 [facility] DATE CREATED AUTHOR AUTHOR'S ORGANIZ ATION 11/07/2023 [facility] Source Comments (unrecognize d section and content) In the event this informatio n is protected by the Federal Confidentiality of Alcohol and Drug Abuse Patient Records regulations: The Federal rules restrict any use of the information to criminally investigate or prosecute any alcohol or drug abuse patient.[facility] the event this information is protected by the Federal Confidentiality of Alcohol and Drug Abuse Patient Records regulations: The Federal rules restrict any use of the information to criminally investigate or prosecute any alcohol or drug abuse patient.[facility] the event this information is protected by the Federal Confidentiality of Alcohol and Drug Abuse Patient Records regulations: The Federal rules restrict any use of the information to criminally investigate or prosecute any alcohol or drug abuse patient.[facility] FOR RECORDS PERTAINING TO PATIENTS WHO [...] PRIMARY CLINICAL RECORDS. [facility] [employer] [facility]. provides no warranty or guarantee of the accuracy or completeness of information in this document.
== END | disposition home or self-care (01) ==
LOC: LAB.FUTURE 08:24
PROVIDERS: PCP Family Medicine; Visit Provider Orthopaedic Surgery
DX: M79.641 Pain in right hand (principal); M14.84 Arthropathies in other specified diseases classified elsewhere, hand; M79.642 Pain in left hand

== ENCOUNTER → 2023-12-08 | Outpatient (CLI) | payer BC, MEDICAID, SELFPAY ==
--- OUTSIDE RECORDS SUMMARY | 2023-11-25 10:00 | XMS RPT_ITS | CCD ---
Author Name Unknown Address [address] [place] [address] Organization [facility] Care Team Providers Care Certified Physician'S Assistant Name Role Phone Ethan Ba Primary Care Provider [phone] Walter Wright MD Unavailable Ethan Ba Primary Care Provider Unavailable Primary Care Provider Unavailabl e CHANCE, CHIQUIS Referring Unavailable CHANCE, CHIQUIS Attending Unavailable CHANCE, CHIQUIS Referring Unavailable CHANCE, CHIQUIS Referring Unavailable CHANCE, CHIQUIS Attending Unavailable Allergies Allergy Classification Reported Allergen(s) Allergy Type Date of Onset Reaction(s) Facility (1 source) House dust mite; Translations: [DUST MITES] allergy to substance [facility] Work Phone: (1 source) [employer]; Translations: [ANIMALS] allergy to substance 9 [facility] Work Phone: (1 source) PLANT POLLENS; Translations: [PLANT POLLENS] allergy to substance 9 [facility] Work Phone: Medications Current Medications Medication Drug Class(es) Dates Sig (Normalized) Sig (Original) clonazePAM 0.5 mg oral tablet (6 sources) Benzodiazepine take 1 tablet by myke twice daily clonazePAM (KLONOPIN) 0.5 MG tablet [...] AERS 2 puffs as needed ALBUTEROL SULFATE [id number] Walter Wright MD Problems Active Problems Problem [...] conditions (not mental disorders or infectious disease) (2 sources) Endometrium thickened; Translations: [Abnormal findings on diagnostic imaging of other specified body structures] Onset: 11-02-2023 09-30-2023 Chronic Other screening for suspected conditions (not mental disorders or infectious disease) (1 source) Encounter for screening mammogram for malignant neoplasm of breast; Translations: [Encounter for screening mammogram for breast cancer] Onset: 09-29-2023 Episodic Residual codes; unclassified (7 sources) Obstructive sleep apnea syndrome; Translations: [Obstructive sleep apnea (adult) (pediatric)] Onset: 06-30-2019 06-30-2019 Chronic Residual codes; unclassified (1 source) Asymptomatic menopausal state; Translations: [Asymptomatic menopausal state] Onset: 11-02-2023 Episodic Spondylosis; intervertebral disc disorders; other back problems [...] Test Name Value Interpretation Reference Range Facil ity Vital Signs Date Time Vital Sign Value Performing Clinician Facility NEGATED: Highlighted [id number] 10:59-0400 BMI (Body Mass Index) 51.4 kg/m2 Nicolette Torres AT [facility] Work Phone: NEGATED: Highlighted [id number] 10:59-0400 Body weight 127.01 kg Nicolette Torres AT [facility] Work Phone: NEGATED: Highlighted [id number] 10:59-0400 Body weight 127 kg Nicolette Dimos AT [facility] Work Phone: NEGATED: Highlighted [id number] 10:59-0400 BP Diastolic 93 mm[Hg] Nicolette Dimos AT [facility] Work Phone: NEGATED: Highlighted [id number] 10:59-0400 BP Diastolic 81 mm[Hg] Nicolette Dimos AT [facility] Work Phone: NEGATED: Highlighted [id number] 10:59-0400 BP Systolic 134 mm[Hg] Nicolette Dimos AT [facility] Work Phone: NEGATED: Highlighted [id number] 10:59-0400 BP Systolic 146 mm[Hg] Nicolette Dimos AT [facility] Work Phone: NEGATED: Highlighted [id number] 10:59-0400 Height 157.48 cm Nicolette Dimos AT [facility] Work Phone: NEGATED: Highlighted [id number] 10:59-0400 Height 157 cm Nicolette Dimos AT [facility] Work Phone: NEGATED: Highlighted [id number] 10:59-0400 Pulse (Heart Rate) 89 /min Nicolette Dimos AT [facility] Work Phone: Encounters Encounter Date Encounter Type Care Provider Facility Start: 11-02-2023 End: 11-03-2023 ambulatory [facility] Facility:[facility] Start: 09-30-2023 Documentation procedure Mammog damaris Coordinator [facility] Start: 09-30-2023 Letter encounter Mammography Coordinator [facility] Department Start: 09-30-2023 Telephone encounter Chiquis [facility] ASSISTANT PROFESSOR OF MARINE BIOLOGY.CAN LINE OPERATOR Work Phone: OB/Gynecology Procedures Date Procedure Procedure Detail Performing Clinician Start: 12-02-2020 Us breast uni real t grace with image limited Bonnie Amato Work Phone: Start: 12-02-2020 Diagnostic mammograp hy computer-aided detcj bi Bonnie Amato Work Phone: Start: 04-17-2020 Dup-scan xtr veins unilateral/limited study Rishin C Ba Work Phone: Start: 07-07-2019 Us breast uni real t grace with image limited Laura Kohler Work Phone: Start: 07-07-2019 Diagnostic mammograp hy computer-aided detcj uni Lauramareg Aguilaret Work Phone: Start: 06-14-2019 Dup-scan xtr veins unilateral/limited study Rishin C Ba Work Phone: Start: 06-16-2012 Lipid 1996 panel - S kerry or Plasma Us 2 Work Phone: NEGATED: Highlighted rowStart: 05-08-2019 End: 05-08-2019 Documentation of current medications Nicolette Torres AT Plan of Treatment Date Care Activity Detail Author Start: 09-06-2028 HPV Testing HPV Testing [facility] Start: 09-06-2028 Pap Testing Pap Testing [facility] Start: 09-29-2024 Mammography Mammogram Screening [facility] Start: 07-02-2023 Influenza vaccination [facility] Start: 11-01-2022 Depression Assessment Depression Assessment [facility] Start: 2022 Shingles Vaccine (1 of 2) Shingles Vaccine (1 of 2) [place] Start: 2022 Shingrix Vaccine (1 of 2) Shingrix Vaccine (1 of 2) [facility] Start: 06-16-2022 DTaP/Tdap/Td vaccine (2 - Td) DTaP/Tdap/Td vaccine (2 - Td) [place] Start: 06-16-2022 Urine microalbumin profile DTaP,Tdap,Td Vaccine (2 - Td or Tdap) [facility] Start: 12-02-2021 Mammography Mammogram Screening [facility] Start: 07-02-2020 Influenza vaccination Flu vaccine (Season Ended) [place] Start: 07-02-2019 Influenza vaccination Flu vaccine (#1) [place] Start: 06-27-2019 End: 06-27-2019 Appointment 06/27/2019 Appointment Radiology Laura Kohler RN [address] [facility] [address] [phone] [facility] Mammography Start: 05-08-2019 End: 05-08-2019 Appointment Appointment [facility] Work Phone: Start: 2017 Cologuard (FIT-DNA) Cologuard (FIT-DNA) [facility] Start: 2017 Colonoscopy Colonoscopy [facility] Start: 2017 Colorectal Cancer Screening Colorectal Cancer Screening [facility] Start: [address] Colonography [facility] Start: 2017 Diabetes Screening Diabetes Screening [facility] Start: 2017 Fecal Occult Blood Fecal Occult Blood [facility] Start: 2017 Lipid 1996 panel - Serum or Plasma Lipid Screening [facility] Start: 2017 Sigmoidoscopy Sigmoidoscopy [facility] Start: 2012 Diabetes screen Diabetes screen [place], [place] Start: 2012 Lipid panel Lipid screen [place] Start: 2012 Lipid screen Lipid screen [place] Start: 1993 Cervical cancer screen Cervical cancer screen [place], [place] Start: 1993 Screening for malignant neoplasm of cervix Cervical cancer screen [place] Start: 1991 DTaP/Tdap/Td vaccine (1 - Tdap) DTaP/Tdap/Td vaccine (1 - Tdap) [place] Start: 1987 HIV screen HIV screen [place] Start: 1987 HIV screening HIV screen [place] Start: 03-15-1973 Covid-19 Vaccine (#1) Covid-19 Vaccine (#1) [facility] Start: 1972 Hepatitis B Vaccine (1 of 3 - 3-dose series) Hepatitis B Vaccine (1 of 3 - 3-dose series) [facility] Start: 1972 Hepatitis C screening Hepatitis C screen [place] Endometrial bx w/wo endocervix bx w/o dilat spx ENDOMETRIAL BIOPSY Procedures Routine Endometrial thickening on ultrasound Ordered: 09/30/2023 [facility] Work Phone: Immunizations Immunization Date Immunization Notes Care Provider Alfredito loera 06-16-2012 tetanus toxoid, redu guille diphtheria toxoid, and acellular pertussis vaccine, adsorbed Us 2 Work Phone: [facility] Work Phone: Payers Date Payer Category Payer Unknown [employer] BLUE CARD PPO OOS [id number] 2022-Present [phone] [address] [place] [address] PPO [id number] 2022 Unknown [id number] 2018 Unknown BCBS [place] - [place] P PO xxxxxxxxxxxxxxx 2018-Present [address] [place] [address] xxxxxxxxxxxxxxx [id number] 2018 Unknown BCBS [place] P PO [id number] 2018-Present [address] [place] [address] [id number] Social History Date Type Detail Facility Start: 10-07-2012 End: 06-30-2019 Tobacco smoking status NHIS Former smoker [facility] Start: 06-30-2019 End: 09-06-2023 Alcohol intake No [place] Start: 10-28-2018 Tobacco Comment Quit 2005 [place], [place] Sex Assigned At Not on file [place] Start: 06-30-2019 Alcohol intake Current non-dr hand lacer of alcohol (finding) [place] Start: 05-08-2019 End: 05-08-2019 Assertion Unknown if ever smoked [facility] Work Phone: Start: 10-07-2012 End: 06-30-2019 Tobacco use and exposure Never used [place], [place] End: 05-04-2005 History of tobacco use Current smoker [facility] End: 05-04-2005 History of tobacco use Cigarette Smoker [facility] Start: 09-06-2023 Alcohol intake Ex-drinker (finding) [facility] Start: 09-06-2023 History of Social function [facility] Start: 1970 Sex Assigned At Female C [facility] Start: 09-06-2023 Gender identity Identifies as female gender (finding) [facility] Start: 09-06-2023 Sexual orientation Homosexual (findi ng) [facility] Progress note 11-02-2023 Note Date & Type Note Facility 11-02-2023 Note HNO ID: [id number] Author: Chiquis Amato APRN.CAN LINE OPERATOR Service: ? Author Type: Nurse Practitioner Type: Progress Notes Filed: 11/02/2023 2:39 PM Note Text: patient declined operations project manager Miguelina is a 53 year old Female [...] the patient. FSH, Estradiol orders Chiquis Amato APRN.CAN LINE OPERATOR [facility] Note 09-30-2023 Letter - Coordinator, Mammography - 09/30/2023 4:36 PM EST Note Date & Type Note Facility 09-30-2023 Miscellaneous Notes Formattin g of this note might be different from the original. October 01, 2023 PID: [id number] Miguelina Lind [address] [place] [address] Dear Ms. Lind, We are pleased to [...] report will be kept on file at [facility] as part of your permanent medical record and are available for your continuing care. Thank you for allowing us to help in meeting your health care needs. Sincerely, Dr. Fountain Interpreting Radiologist [facility] (Normal over 40) documented in this encounter [facility] Note 09-30-2023 Telephone Encounter - Laura Westbrook [...] on. Order filed. Cytotec ordered. Chiquis Amato APRN.CNP documented in this encounter [facility] Progress note 09-29-2023 Note Date & Type Note Facility 09-29-2023 Note HNO ID: [id number] Author: Racquel Dick RDMS Service: ? Author Type: Ad Terminal Makeup Operator Type: Progress Notes Filed: 09/29/2023 1:21 PM [...] RDMS RVT September 29, 2023 1:21 PM [facility] History of Present illness Narrative 09-29-2023 Racquel [...] 2023 1:21 PM documented in this encounter [facility] Progress note 09-06-2023 Note Date & Type Note Facility 09-06-2023 Note HNO ID: [id number] Author: Chiquis Amato APRN.CAN LINE OPERATOR Service: ? Author Type: Nurse Practitioner Type: Progress Notes Filed: 09/06/2023 3:24 PM Note Text: Machine Maintenance Servicer offered: Patient declinesGamaliel Mcintyre is a 52 [...] L2 SAB0 IAB0 Ectopic0 Multiple0 Live Births0 Emergency Room Physician Assistant History LMP: 03/09/2017 (Within Days), Having periods Age at Menarche: Age at First : Age at Menopause: Emergency Room Physician Assistant History Comments: Sexual Activity: Yes; Female Contraception: [...] Paternal Grandmother other (Other) Paternal Grandmother No breast/field scout/cancer/skin canc SOCIAL HISTORY Social History Tobacco Use [...] external genitalia normal, normal Bartholin's glands, urethra, Kiowa's glands, no vulvar lesions, good vaginal support, [...] test results. Post-procedure (more content not included)... [facility] Evaluation note Note Date & Type Note Facility documented in this encounter [facility] Evaluation note Note Date & Type Note Facility documented in this encounter [facility] Reason for referral (narrative) Outpatient Procedure (Routine) - Pending Review Note Date & Type Note Facility Referral ID Status Reason Start Date Expiration Date Visits Requested Visits Authorized [id number] Pending Review Auto-Generat ed Referral 3 09/29/2024 1 1 [facility] Advance Directives No Advanced Directives Records FoundDocuments on File Type Date Recorded Patient Beauty Culture Teacher Expl anation Advance Directives and Living Will Power of Animal Nutrition Teacher Documents on File Type Date Recorded Patient Beauty Culture Teacher Expl anation ACP-Advance Directive ACP-Power of Animal Nutrition Teacher Chief Complaint Chief Complaint Description Start Date right knee pain Preliminary chief co mplaint data, not yet signed by the author as of Instructions Instruction Description Start Date CompletedPlease follow-up wi th Primary Care Physician or Telehealth Coordinator for treatment or adjustment of medication regarding [...] FEMALE PELVIS TRANSVAG US TRANSVAGINAL Chiquis Amato APRN.CAN LINE OPERATOR [address] [place] [address] [place] [address] Referral ID Status Reason Start Date Expiration Date V isits Requested Visits Authorized [id number] Closed Auto-Generate d Referral 09/06/2023 10/05/2024 1 1 Reason Comments Results INFORMATION SOURCE (unrecogn ized section and content) DATE CREATED AUTHOR AUTHOR'S ORGANIZ ATION 05/25/2021 [facility] DATE CREATED AUTHOR AUTHOR'S ORGANIZ ATION 05/26/2021 [facility] DATE CREATED AUTHOR AUTHOR'S ORGANIZ ATION 11/07/2023 [facility] Source Comments (unrecognize d section and content) In the event this informatio n is protected by the Federal Confidentiality of Alcohol and Drug Abuse Patient Records regulations: The Federal rules restrict any use of the information to criminally investigate or prosecute any alcohol or drug abuse patient.[facility] the event this information is protected by the Federal Confidentiality of Alcohol and Drug Abuse Patient Records regulations: The Federal rules restrict any use of the information to criminally investigate or prosecute any alcohol or drug abuse patient.[facility] the event this information is protected by the Federal Confidentiality of Alcohol and Drug Abuse Patient Records regulations: The Federal rules restrict any use of the information to criminally investigate or prosecute any alcohol or drug abuse patient.[facility] FOR RECORDS PERTAINING TO PATIENTS WHO ARE [...] BE BASED ON THE PRIMARY CLINICAL RECORDS. [facility] [employer] [facility]. provides no warranty or guarantee of the accuracy or completeness of information in this document.
[2023-11-25 12:49] LABS: Erythrocyte Sedimentation Rate 28 mm/hr (0-30)
[2023-11-25 12:52] LABS: Absolute Lymphocyte Count 1.88 X10^3/uL (0.83-4.51); Basophil# 0.03 X10^3/uL; Basophil% 0.5 % (0-1); Eosinophil# 0.08 X10^3/uL; Eosinophils% 1.3 % (0-5); Hematocrit 42.8 % (37-47); Lymphocyte # 1.88 X10^3/ul (0.83-4.51); Lymphocyte % 29.5 % (19-41); Mean Corp Hgb Conc 32.7 g/dL (32-36); Mean Corpuscular Hgb 27.6 pg (27.0-32.0); Mean Corpuscular Volume 84.3 fL (81-99); Mean Platelet Vol. 10.1 fl (6.2-12.0); Monocyte% 6.3 % (0-10); NRBC Flagged by Analyzer 0 % (0-5); Neutrophil # 3.96 X10^3/uL (2.7-7.7); Neutrophil % 61.9 % (47-70); Platelet Count 265 K/mm3 (150-450); RBC Distribution Width CV 13.4 % (11.6-14.6); RBC Distribution Width SD 41.3 fl (35.1-43.9); Red Blood Count 5.08 M/mm3 (4.2-5.4); White Blood Count 6.4 K/mm3 (4.4-11.0)
[2023-11-25 13:15] LABS: Uric Acid 5.8 mg/dL (2.6-6.0)
[2023-11-29 14:08] LABS: ANTINUCLEAR ANTIBODIES DIRECT Negative (Negative)
== END | disposition home or self-care (01) ==
LOC: LAB.FUTURE 15:22
PROVIDERS: PCP Family Medicine; Referring Provider Orthopaedic Surgery; Visit Provider Orthopaedic Surgery
DX: M79.642 Pain in left hand (principal); M14.84 Arthropathies in other specified diseases classified elsewhere, hand; M79.641 Pain in right hand
CPT/HCPCS: 36415; 84550; 85025; 85652; 86038; 86140; 86431

== ENCOUNTER → 2024-02-22 | Outpatient (CLI) | payer BC, MEDICAID, SELFPAY ==
[2024-02-22 12:22] LABS: Absolute Lymphocyte Count 1.87 X10^3/uL (0.83-4.51); Absolute Neutrophil Count 3.7 X10^3/uL (2.0-7.7); Basophil# 0.02 X10^3/uL; Basophil% 0.3 % (0-1); Eosinophil# 0.09 X10^3/uL; Eosinophils% 1.5 % (0-5); Hematocrit 42.5 % (37-47); Hemoglobin 13.9 g/dL (12.0-15.0); Lymphocyte # 1.87 X10^3/ul (0.83-4.51); Lymphocyte % 30.5 % (19-41); Mean Corp Hgb Conc 32.7 g/dL (32-36); Mean Corpuscular Hgb 28.2 pg (27.0-32.0); Mean Corpuscular Volume 86.2 fL (81-99); Monocyte# 0.39 X10^3/uL; Monocyte% 6.4 % (0-10); NRBC Flagged by Analyzer 0 % (0-5); Neutrophil # 3.73 X10^3/uL (2.7-7.7); Neutrophil % 60.8 % (47-70); Platelet Count 266 K/mm3 (150-450); RBC Distribution Width CV 13.6 % (11.6-14.6); RBC Distribution Width SD 42.9 fl (35.1-43.9); Red Blood Count 4.93 M/mm3 (4.2-5.4); White Blood Count 6.1 K/mm3 (4.4-11.0)
[2024-02-22 12:37] LABS: Vitamin D,25 Hydroxy 48.4 ng/mL
[2024-02-22 13:04] LABS: ALB/GLOB Ratio 0.9 RATIO (0.9-2.4); AST(SGOT) 16 U/L (15-37); Alanine Aminotransfer ALT/SGPT 31 U/L (13-56); Albumin, Serum 3.3 g/dL (3.2-5.0); Alkaline Phosphatase 80 U/L (45-117); Anion Gap 5 (5-15); BUN 15 mg/dL (7-18); BUN/Creat Ratio 18.3 RATIO (10-20); Calcium,Total 8.9 mg/dL (8.5-10.1); Chloride 108 mmol/L (98-107); Creatinine, Serum 0.82 mg/dL (0.55-1.02); EST Glomerular Filtration Rate 78 mL/min (>60); Est Glom Filt Rate - Afr Amer 95 mL/min (>60); Globulin 3.6 g/dL (2.2-4.2); Glucose 98 mg/dL (74-106); Potassium 4.4 mmol/L (3.5-5.1); Protein, Total 6.9 g/dL (6.4-8.2); Sodium Level 139 mmol/L (136-145)
== END | disposition home or self-care (01) ==
LOC: MFPLAB 10:37
PROVIDERS: PCP Family Medicine; Visit Provider Family Medicine
DX: E55.9 Vitamin D deficiency, unspecified (principal); K21.9 Gastro-esophageal reflux disease without esophagitis
CPT/HCPCS: 36415; 80053; 82306; 85025

== ENCOUNTER 2024-03-03 11:33 | Day surgery (SDC) | payer BC, SELFPAY ==
--- NOTE | 2024-03-01 08:08 | PCM.HP.BLA ---
History and Physical Date of Admission: 03/03/24 Pre-Op History and Physical ? HPI: The patient is a 53 year old female presenting for discussion regarding postmenopausal bleeding and thickened endometrium. Endometrial biopsy showed scant inactive endometrium. Patient would like to proceed with hysteroscopy D&C. ? Pre-operative visit. She is scheduled for Hysteroscopy D&C and possible polypectomy with symphion , for postmenopausal bleeding and thickened endometrium on March 03, 2024. Procedure discussed along with risks, benefits and complications. Other alternatives discussed for management. Consent form signed? Yes. ? ? PAST MEDICAL HISTORY PAST MEDICAL HISTORY Diagnosis Date ? ADD (attention deficit disorder) ? ? Binge eating disorder ? ? Depression with anxiety ? ? Factor 5 Leiden mutation, heterozygous (HCC) ? ? 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 ? PAST SURGICAL HISTORY PAST SURGICAL HISTORY Procedure Laterality Date ? BX BREAST W/DEVICE 1ST LESION STEREOTACTIC GUID ? 12/10/2014 ? left breast ? DELIVERY ONLY ? ? ? , low transverse ? PAST SURGICAL HISTORY OF ? ? ? surgery to ovary ? PAST SURGICAL HISTORY OF Right 2019 ? DVT right lower leg ? RADIOLOGICAL EXAMINATION SURGICAL SPECIMEN ? 12/10/2014 ? left breast ? THYROID SURGERY HX ? 12/2014 ? ? ? CURRENT MEDICATIONS Current Outpatient Medications Medication Sig Dispense Refill ? fluticasone (FLOVENT) 220 mcg/actuation inhaler Inhale 1 Puff as instructed. ? ? ? albuterol HFA (PROVENTIL HFA, VENTOLIN HFA) 90 mcg/actuation inhaler Inhale 2 Puffs as instructed every 6 hours as needed for wheezing/shortness of breath. ? ? ? ELIQUIS 5 mg tab(s) Take by mouth two times a day. ? ? ? VYVANSE 50 mg capsule Take 50 mg by mouth once daily. ? ? ? meloxicam (MOBIC) 15 mg tablet Take 15 mg by mouth once daily. ? ? ? RABEprazole (ACIPHEX) 20 mg tablet Take 20 mg by mouth once daily. ? ? ? sertraline (ZOLOFT) 100 mg tablet Take 100 mg by mouth once daily. ? ? ? montelukast (SINGULAIR) 10 mg tablet Take 10 mg by mouth once daily. ? ? ? CPAP daily at bedtime. ? ? ? No current facility-administered medications for this visit. ? ? ALLERGIES: Patient has no known allergies. ? PERSONAL HISTORY: SOCIAL HISTORY Social History ? Tobacco Use ? Smoking status: Former ? ? Types: Cigarettes ? ? Quit date: 05/04/2005 ? ? Years since quittin.8 ? Smokeless tobacco: Never Vaping Use ? Vaping Use: Never used Substance Use Topics ? Alcohol use: Not Currently ? Drug use: Never ? FAMILY HISTORY: FAMILY HISTORY FAMILY HISTORY Problem Relation Age of Onset ? Hypertension Mother ? ? Diabetes Mother ? ? borderline ? Diabetes Father ? ? borderline ? other (Gout) Father ? ? other (lung can) Maternal Grandmother ? ? other (lung cancer) Paternal Grandmother ? ? other (Other) Paternal Grandmother ? ? No breast/weight control engineer/cancer/skin canc ? ? REVIEW OF SYMPTOMS: negative except as noted above PHYSICAL EXAMINATION: ? VITALS: Blood pressure 132/78, pulse 86, weight 292 lb (132.5 kg), last menstrual period 08/01/2023, SpO2 96%. ? GENERAL: The patient is well nourished, well hydrated in no acute distress. , The patient is oriented to time, place, and person. NECK: full range of motion LUNGS: Clear to auscultation bilaterally. no wheezes, rhonchi or rales HEART: Regular rate and rhythm, Normal heart sounds, and No murmurs or gallops ? IMPRESSION: 53yo with PMB, thickened endometrium ? PLAN: Hysteroscopy, D&C, possible polypectomy with Symphion ? Pt has been counseled on risks/benefits and alternatives of surgery including but not limited to anesthesia, bleeding, infection, uterine perforation with subsequent injury to pelvic structures including bowel, bladder, ureters and vessels. Pt wishes to proceed with surgery at this time. ? Medical clearance indicated- pt reports that with her primary care physician yesterday had blood work done. Will obtain results. Patient takes Eliquis twice daily. Patient reports does stop it 5 days before procedures has done this in the past without any complications. Has a history of factor V Leiden. ? Pre and post op instructions reviewed ? I have reviewed and updated past medical and surgical history, medications and allergies Lor Niño MD ?5:43 PM Office Visit on 02/23/2024 Office Visit on 02/23/2024 Note shared with patient
[2024-03-03] VITALS (7 sets, daily range): BP systolic 115–138; BP diastolic 65–87; PULSE 72–84; RESP 16–18; TEMP 36.2–36.6; O2SAT 95–97; BMI 52.8
[2024-03-03] MEDS: Lactated Ringers 1,000 ML 15 ML IV (12:20)
[2024-03-03 12:38] LABS: Partial Thromboplast Time 26.7 Seconds (24.1-36.2); Prothrombin Time (Protime)PT. 13.3 SECONDS (11.7-14.9)
--- NOTE | 2024-03-03 13:00 | EMB_PTH ---
PATIENT: ZOE LIND LOC: [facility] U#:[id number] AGE/SX: 53/F ROOM: RE03/03/[address]: Dr. Lor Deluna, MDDOB: 1970 BED: DIS: 03/03/2024 SPEC #: [id number] RECD: 03/03/24 15:32 STATUS: EUGENE HOFFMAN #: [id number] AIRAM: 03/03/24 13:[address]: Lor Deluna DEPT: SURGICAL PATHOLOGY RECD BY: Gil Rowland ENTERED: 03/06/24 07:49 SP TYPE: ENDOM BX/C JAJA DR: Dr. Seth Bowens MD Tissues: Endometrium, NOS Procedures: Surgery Specimen Level IV HEADER OPERATION: Hysteroscopy, D&C, Symphion PRE-OP DIAGNOSIS: Post-menopausal bleeding, thickened endometrium TISSUE SUBMITTED: Endometrial Curettings MICROSCOPIC DIAGNOSIS Endometrial Currettings: Proliferative endometrium. Fragments of myometrium. / 03/07/24 MICROSCOPIC DESCRIPTION Slides are reviewed. GROSS DESCRIPTION Received in fixative is one container labeled with the patient's name and designated Endometrial curettings. The specimen consists of multiple irregular fragments of light hamilton soft tissue that in aggregate measure 2.5 x 1.0 x 0.2 cm. The specimen is totally submitted in one cassette. / 03/06/24 TC:4 CPT:24707
--- NOTE | 2024-03-03 13:10 | EKG12_ITS ---
Test Reason : PRE OP Blood Pressure : / mmHG Vent. Rate : 079 BPM Atrial Rate : 079 BPM P-R Int : 170 ms QRS Dur : 070 ms QT Int : 356 ms P-R-T Axes : 036 003 016 degrees QTc Int : 408 ms Normal sinus rhythm Normal ECG When compared with ECG of 18-JUL-2020 14:20, No significant change was found Confirmed by ARAM YATES MD ([id number]), book or script editor ALYSSA US ([id number]) on 03/06/2024 9:38:51 AM Also confirmed by ARAM YATES MD ([id number]), book or script editor ALYSSA US ([id number]) on 03/06/2024 10:04:08 AM Referred By: Lor Niño Confirmed By:ARAM YATES MD
--- NOTE | 2024-03-03 13:17 | DCINST_ITS ---
Discharge Instructions Diet Discharge Diet: No restrictions Activity May resume sexual activity in: 1 week Dressing / Incision Call your doctor if you observe: Fever of 101 or Higher, Inability to urinate, Using more than 1 pad per hour and Uncontrolled pain Follow Up Care Please Follow Up With: Lor Niño MD When: 1-2 weeks post OP if you need an appointment please call [phone] Test Results: Test results from this visit will be discussed in further detail at your follow- up appointment, if applicable. Discharge Plan Admission Attending Provider: Lor Niño Primary Care Provider: Seth Bowens Discharge Orders/Prescriptions Prescriptions: No Action meloxicam 15 mg tablet 15 mg PO DAILY Patient Comments: TAKE 1 TABLET BY MOUTH EVERY DAY albuterol sulfate 2.5 mg /3 mL (0.083 %) solution for nebulization 5 mg inhalation PRN PRN (Reason: ASTHMA) Patient Comments: USE 1 VIAL VIA NEBULIZER EVERY 6 HOURS albuterol sulfate [Ventolin HFA] 1 INHALER inhaler 2 puff inhalation Q6H PRN PRN (Reason: Asthma) fluticasone propionate 1 SPRAY spray,suspension 1 spray intranasal DAILY PRN PRN (Reason: nasal congestion) sertraline 50 MG tablet 100 mg PO DAILY montelukast 10 MG tablet 10 mg PO DAILY apixaban 5 MG tablet 5 mg PO BID fluticasone propionate [Flovent HFA] 220 mcg/actuation Hfa Aerosol Inhaler 1 puff INHALATION BID lisdexamfetamine 50 mg capsule 50 mg PO DAILY rabeprazole [AcipHex] 20 mg tablet,delayed release (DR/EC) 20 mg PO DAILY cholecalciferol (vitamin D3) [Vitamin D3] 50 mcg (2,000 unit) capsule 50 mcg PO DAILY Referrals / Follow Up: Seth Bowens MD [Primary Care Provider] - Disposition Disposition (needs filled in before D/C Order can be placed): Home, Self Care
--- NOTE | 2024-03-03 13:18 | OP.PCM_ITS ---
Report of Operation Date of Procedure: 03/03/24 Pre-Operative Diagnosis: PMB, thickened Endometrium Post-Operative Diagnosis: Same Surgery/Procedure Performed:: Hysteroscopy, D&C with symphion Description of Surgical Findings:: overall atrophic endometrium - small amount of tissue noted on posterior aspect of uterus. Surgeon: Lor Niño pilates instructor: None Type of Anesthesia: MAC Specimen's removed: endometrial curettings Estimated Blood Loss (mL): <5cc Fluids Replaced: 500 Description of Procedure: Informed consent was obtained the patient was taken the operating room she was placed in supine position. She was given anesthesia. She was then placed in the [facility] where she was prepped and draped in the normal sterile fashion. At this time the weighted speculum was placed in the posterior fornix of vagina. Single-tooth tenaculum was used to gently grasp the anterior lip the cervix. At this time the uterine cavity was sounded to approximately 10 cm. Gentle dilatation was performed once adequate dilatation of the cervix was achieved the hysteroscope using normal saline as a distention medium was placed. Tubal ostia visualized. Small tissue noted on posterior aspect but no polyp noted, otherwise cavity appeared atrophic. Symphion resecting device used to obtain endometrial curettings and to remove area of tissue noted. Tissue will be sent to pathology for evaluation. Tenaculum removed. Good hemostasis. Instrument, lap count correct x 2. Vaginal Sweep was negative. Grafts/Implants Used: none Procedure Start Time: 13:28 Procedure Stop Time: 13:36 Complications none Admit VTE Documentation VTE Present on Admission: Yes VTE Mechan Device Prophylaxis: SCD's VTE Pharm Prophylaxis ordered?: No Reason prophylaxis not ordered:: Procedure Not Indicated
== END 2024-03-03 14:56 | disposition home or self-care (01) ==
LOC: SDC 11:34 → AC 11:35
PROVIDERS: PCP Family Medicine; Referring Provider Obstetrics & Gynecology; Visit Provider Obstetrics & Gynecology
PROC: 0UB98ZZ Excision of Uterus, Via Natural or Artificial Opening Endoscopic (ICD-10-PCS; CPT 58558; principal; 2024-03-03 12:45)
DX: R93.89 Abnormal findings on diagnostic imaging of other specified body structures (principal); N95.0 Postmenopausal bleeding; D68.51 Activated protein C resistance; Z87.891 Personal history of nicotine dependence; Z79.01 Long term (current) use of anticoagulants; J45.909 Unspecified asthma, uncomplicated; Z79.51 Long term (current) use of inhaled steroids; K21.9 Gastro-esophageal reflux disease without esophagitis; Z79.899 Other long term (current) drug therapy; Z86.718 Personal history of other venous thrombosis and embolism
CPT/HCPCS: 58558; 00952; 85610; 85730; 88305; 93005; J7120; J2405

== ENCOUNTER → 2024-06-28 | Outpatient (CLI) | payer BC, MEDICAID, SELFPAY ==
[2024-06-28 18:10] LABS: Absolute Lymphocyte Count 1.75 X10^3/uL (0.83-4.51); Absolute Neutrophil Count 4.5 X10^3/uL (2.0-7.7); Basophil# 0.03 X10^3/uL; Basophil% 0.4 % (0-1); Eosinophil# 0.11 X10^3/uL; Eosinophils% 1.6 % (0-5); Hematocrit 42.1 % (37-47); Hemoglobin 13.4 g/dL (12.0-15.0); Lymphocyte # 1.75 X10^3/ul (0.83-4.51); Lymphocyte % 25.5 % (19-41); Mean Corp Hgb Conc 31.8 g/dL (32-36); Mean Corpuscular Hgb 27.5 pg (27.0-32.0); Mean Corpuscular Volume 86.4 fL (81-99); Mean Platelet Vol. 10.6 fl (6.2-12.0); Monocyte# 0.41 X10^3/uL; NRBC Flagged by Analyzer 0 % (0-5); Neutrophil # 4.52 X10^3/uL (2.7-7.7); Neutrophil % 65.9 % (47-70); Platelet Count 247 K/mm3 (150-450); RBC Distribution Width CV 13.5 % (11.6-14.6); RBC Distribution Width SD 42.3 fl (35.1-43.9); Red Blood Count 4.87 M/mm3 (4.2-5.4); White Blood Count 6.9 K/mm3 (4.4-11.0)
[2024-06-28 18:39] LABS: Vitamin D,25 Hydroxy 34.7 ng/mL
[2024-06-28 18:45] LABS: ALB/GLOB Ratio 0.9 RATIO (0.9-2.4); AST(SGOT) 13 U/L (15-37); Alanine Aminotransfer ALT/SGPT 27 U/L (13-56); Albumin, Serum 3.4 g/dL (3.2-5.0); Alkaline Phosphatase 80 U/L (45-117); Anion Gap 7 (5-15); BUN 19 mg/dL (7-18); BUN/Creat Ratio 22.9 RATIO (10-20); Calcium,Total 9.1 mg/dL (8.5-10.1); Chloride 109 mmol/L (98-107); Cholesterol 211 mg/dL (200); Creatinine, Serum 0.83 mg/dL (0.55-1.02); EST Glomerular Filtration Rate 77 mL/min (>60); Est Glom Filt Rate - Afr Amer 93 mL/min (>60); Globulin 3.7 g/dL (2.2-4.2); Glucose 108 mg/dL (74-106); High Density Lipoprotein 44 mg/dL; Potassium 4.2 mmol/L (3.5-5.1); Protein, Total 7.1 g/dL (6.4-8.2); Sodium Level 140 mmol/L (136-145); Triglycerides 203 mg/dL; Very Low Density Lipoprotein 41 mg/dL (5-40)
[2024-06-29 16:25] LABS: Hemoglobin A1c 5.4 % (3.8-5.6)
== END | disposition home or self-care (01) ==
LOC: MFPLAB 15:45
PROVIDERS: PCP Family Medicine; Visit Provider Family Medicine
DX: E55.9 Vitamin D deficiency, unspecified (principal); K21.9 Gastro-esophageal reflux disease without esophagitis
CPT/HCPCS: 36415; 80053; 80061; 82306; 83036; 85025

== ENCOUNTER → 2024-08-09 | Outpatient (CLI) | payer BC, SELFPAY ==
--- NOTE | 2024-08-09 08:50 | RAD_ITS ---
STUDY: X-RAY - LUMBAR SPINE REASON FOR EXAM: Female, 53 years old. Paresthesia of skin TECHNIQUE: 2 view(s) of the lumbar spine were obtained. COMPARISON: None FINDINGS: Normal lumbar lordosis. There is a mild dextroscoliosis of the lumbar spine. There is a normal alignment of the vertebrae in the lateral view. Normal vertebral bodies and endplates. Mild disc space narrowing throughout the lumbar spine. There is no demonstrated fracture. The soft tissue structures are unremarkable. RAD/Lumbar Spine 2 or 3 Views IMPRESSION: Mild degenerative changes, no acute findings Electronically Signed: Jose Maria Rosario MD at 9:07 EDT ,
--- NOTE | 2024-08-09 15:36 | NEURO ---
NCS and/or EMG Patient Report Ordering Doctor: Haseeb Claros DATE OF SERVICE: 08/09/24 Miguelina presents for electrodiagnostic testing of the lower limbs. She reports numbness in the first 2 toes of the right foot and second toe of the left foot. This started several months ago. Electrodiagnostic findings: Right peroneal motor nerve demonstrates normal distal latency, amplitude and conduction velocity. Left peroneal motor nerve demonstrates normal distal latency, amplitude and conduction velocity. Tibial motor response is within normal limits bilaterally. Sensory responses are normal. F?waves and H?reflexes are normal. Needle EMG testing was performed in the lower limbs. All muscles tested showed no evidence of denervation with normal motor unit action potentials. There was no polyphasic activity. Electrodiagnostic impression: This a normal electrodiagnostic study of the lower limbs. There is no electrodiagnostic evidence for peripheral neuropathy or lumbosacral radiculopathy. Multi Select Codes Neurology Neurology Interp Codes: 46767-21 Musc test done w/n test comp (interp) (2) and 01114-67 Nrv cndj test 9-10 studies (interp)
== END | disposition home or self-care (01) ==
PROVIDERS: PCP Family Medicine; Referring Provider Podiatrist; Visit Provider Podiatrist
DX: R20.2 Paresthesia of skin (principal)
CPT/HCPCS: 72100; 95886; 95911

== ENCOUNTER → 2025-03-15 | Outpatient (CLI) | payer BC, SELFPAY ==
--- NOTE | 2025-03-15 16:58 | RAD_ITS ---
PROCEDURE: TOE(S) MIN 2 VIEWS 03/15/2025 REASON FOR EXAM: GOUT, RIGHT BIG TOE TECHNIQUE: 3 view(s) of the right 1st ray COMPARISON: None available FINDINGS: No fracture or dislocation. The joint spaces appear within limits. No osseous destruction or periosteal reaction. Soft tissues appear within limits. RAD/Toe(s) Min 2 Views IMPRESSION: Study appears within limits. Reading Location: [id number]
[2025-03-15 18:07] LABS: ALB/GLOB Ratio 1.4 RATIO (0.9-2.4); AST(SGOT) 28 U/L (<=31); Alanine Aminotransfer ALT/SGPT 28 U/L (<=34); Albumin, Serum 4.1 g/dL (3.5-5.0); Alkaline Phosphatase 78 U/L (35-104); Anion Gap 13 (5-15); BUN 18 mg/dL (4-19); BUN/Creat Ratio 21.3 RATIO (10-20); Calcium,Total 9.3 mg/dL (7.6-11.0); Carbon Dioxide 22.5 mmol/L (21.0-32.0); Chloride 105 mmol/L (98-108); Creatinine, Serum 0.87 mg/dL (0.70-1.20); EST Glomerular Filtration Rate 81 (>60); Globulin 2.9 g/dL (2.2-4.2); Glucose 100 mg/dL (70-99); Potassium 4.1 mmol/L (3.3-5.1); Protein, Total 6.9 g/dL (5.9-8.4); Sodium Level 140 mmol/L (133-145); Total Bilirubin 0.27 mg/dL (0.00-1.30); Uric Acid 7.4 mg/dL (2.6-6.0)
== END | disposition home or self-care (01) ==
PROVIDERS: PCP Family Medicine
DX: M10.9 Gout, unspecified (principal)
CPT/HCPCS: 36415; 73660; 80053; 84550

== ENCOUNTER 2025-04-10 16:51 | Outpatient (CLI) | payer BC, MEDICAID, SELFPAY ==
[2025-04-10 20:04] LABS: Absolute Lymphocyte Count 1.91 X10^3/uL (0.83-4.51); Absolute Neutrophil Count 4.4 X10^3/uL (2.0-7.7); Basophil# 0.01 X10^3/uL; Basophil% 0.1 % (0-1); Eosinophil# 0.09 X10^3/uL; Eosinophils% 1.3 % (0-5); Hematocrit 43.1 % (37-47); Hemoglobin 13.6 g/dL (12.0-15.0); Lymphocyte # 1.91 X10^3/ul (0.83-4.51); Lymphocyte % 27.8 % (19-41); Mean Corp Hgb Conc 31.6 g/dL (32-36); Mean Corpuscular Hgb 27.4 pg (27.0-32.0); Mean Corpuscular Volume 86.7 fL (81-99); Mean Platelet Vol. 10.9 fl (6.2-12.0); Monocyte% 7.3 % (0-10); NRBC Flagged by Analyzer 0 % (0-5); Neutrophil # 4.35 X10^3/uL (2.7-7.7); Neutrophil % 63.2 % (47-70); Platelet Count 275 K/mm3 (150-450); RBC Distribution Width SD 43.9 fl (35.1-43.9); Red Blood Count 4.97 M/mm3 (4.2-5.4); White Blood Count 6.9 K/mm3 (4.4-11.0)
[2025-04-10 20:24] LABS: Hemoglobin A1c 5.6 % (<=5.6)
[2025-04-10 20:44] LABS: Cholesterol 202 mg/dL (<=200); High Density Lipoprotein 39 mg/dL; Low Density Lipoprotein Calc. 121 mg/dL; Triglycerides 211 mg/dL; Very Low Density Lipoprotein 42 mg/dL (5-40); Vitamin D,25 Hydroxy 42.4 ng/mL (30-100); cholesterol:hdl ratio screen 5.25
[2025-04-10 20:48] LABS: ALB/GLOB Ratio 1.4 RATIO (0.9-2.4); AST(SGOT) 19 U/L (<=31); Alanine Aminotransfer ALT/SGPT 20 U/L (<=34); Albumin, Serum 4.1 g/dL (3.5-5.0); Alkaline Phosphatase 77 U/L (35-104); Anion Gap 13 (5-15); BUN 16 mg/dL (4-19); BUN/Creat Ratio 21.5 RATIO (10-20); Calcium,Total 9.2 mg/dL (7.6-11.0); Chloride 107 mmol/L (98-108); Creatinine, Serum 0.75 mg/dL (0.70-1.20); EST Glomerular Filtration Rate 95 (>60); Globulin 2.9 g/dL (2.2-4.2); Glucose 84 mg/dL (70-99); Protein, Total 6.9 g/dL (5.9-8.4); Sodium Level 141 mmol/L (133-145); Total Bilirubin < 0.15 mg/dL (0.00-1.30)
== END 2025-04-10 23:59 | disposition home or self-care (01) ==
LOC: MFPLAB 16:52
PROVIDERS: PCP Family Medicine; Referring Provider Family Medicine; Visit Provider Family Medicine
DX: E66.01 Morbid (severe) obesity due to excess calories (principal); E55.9 Vitamin D deficiency, unspecified
CPT/HCPCS: 36415; 80053; 80061; 82306; 83036; 84443; 85025

== ENCOUNTER → 2025-08-24 | Outpatient (CLI) | payer BC, MEDICAID, SELFPAY ==
--- NOTE | 2025-08-24 12:33 | US_ITS ---
PROCEDURE: THYROID 08/24/2025 REASON FOR EXAM: Left thyroid nodules. Status post resection of the right lobe of the thyroid. TECHNIQUE: Procedure Code: USTHY Modality: US Procedure: THYROID FINDINGS: Right thyroid lobe has been resected. Left thyroid lobe size: 5.6 cm x 1.6 cm 1.8 cm. Multiple subcentimeter nodules are seen. Isthmus: 0.2 cm Background parenchymal echotexture is heterogeneous Nodules: . Lobe: Left, Location: Upper pole, Size: 0.8 cm 1 cm 0.6 cm, Stability: Composition: Solid or almost completely solid (+2) Echogenicity: Hypoechoic (+2) Margin: Smooth (+0) Shape: Wider than tall (+0) Echogenic Foci: None (+0) TI-RADS: 4 . Lobe: Left, Location: Midpole, Size: 0.8 cm x 0.5 cm 0.6 cm, Stability: N/A Composition: Solid or almost completely solid (+2) Echogenicity: Hypoechoic (+2) Margin: Smooth (+0) Shape: Wider than tall (+0) Echogenic Foci: None (+0) TI-RADS: 4 US/Thyroid IMPRESSION: Hypoechoic nodules in the left lobe of the thyroid as described. Biopsy of the largest nodule is recommended for further evaluation. RECOMMENDATION: Based on most suspicious nodule. Nodule size = largest diameter Only evaluate nodule if =>5 mm. Growth > 20% in 2 dimensions = worsening. Follow up to 4 nodules. Recommend biopsy for no more than 2 nodules. Reading Location: [id number]
== END | disposition home or self-care (01) ==
PROVIDERS: PCP Family Medicine; Referring Provider Family Medicine; Visit Provider Family Medicine
DX: E04.1 Nontoxic single thyroid nodule (principal)
CPT/HCPCS: 76536